=== PATIENT | female | born 1950 | race Caucasian/White ===

== ENCOUNTER → 2016-12-04 | Outpatient (CLI) | payer OTHER ==
[~2016-12-04] VITALS: Ht 152.4 cm; Wt 110.0 kg
[~2016-12-04] MED LIST: AMR2 PO; ASPEC81 PO; ASPI81TA28 PO; CRS10 PO; DAPA1TAB2 PEG; DTRSR10 PO; EXEN1INJ3 SQ; FERR1TAB13 PO; FRRS300 PO; GLC/500 PO; GLC500 PO; GLIM4TAB2 PO; HYDC25 PO; LISI20TA3 PO; LPT/40 PO; METF-384 PO; MULT-506 PO; OXYB15TA PO
[2016-12-04 15:46] VITALS: BP 142/83; PULSE 109; Ht 152.4 cm; Wt 110.0 kg
== END | disposition home or self-care (01) ==
LOC: C.NEUR 15:00
PROVIDERS: ATTEND Internal Medicine Pulmonary Disease
DX: G47.33 Obstructive sleep apnea (adult) (pediatric) (principal); G47.61 Periodic limb movement disorder; E66.01 Morbid (severe) obesity due to excess calories

== ENCOUNTER → 2017-01-28 | Outpatient (CLI) | payer OTHER ==
--- NOTE | 2017-01-28 12:12 | DIAGNOSTIC IMAGING REPORT ---
RIGHT UPPER EXTREMITY ULTRASOUND CLINICAL HISTORY: R22.31 Lump of skin of right upper extremity right upper armULTR6 COMPARISON STUDY: None. FINDINGS: There is a 2.9 x 2.6 x 1.1 cm well-circumscribed mass within the subcutaneous fat in the right upper arm posteriorly. This demonstrates echogenicity consistent with fat. Therefore, this likely represents a lipoma. No fluid collections identified IMPRESSION: A 2.9 x 2.6 x 1.1 cm subcutaneous fat-containing lesion within the right upper arm. This likely represents a lipoma Electronically signed by: Adair Noriega M.D. 01/28/2017 12:11 PM Dictated Date/Time: 01/28/2017 12:10 PM
== END | disposition home or self-care (01) ==
LOC: C.ULTR 11:10
PROVIDERS: ATTEND Internal Medicine
DX: R22.31 Localized swelling, mass and lump, right upper limb (principal)

== ENCOUNTER → 2017-02-25 | Outpatient (CLI) | payer OTHER ==
[~2017-02-25] MED LIST changes: -DAPA1TAB2 PEG; +DAPA1TAB8 PEG
[2017-02-25 12:06] LABS: URINE APPEARANCE CLEAR (CLEAR); URINE BILIRUBIN NEG (NEG); URINE COLOR YELLOW; URINE EPITHELIAL CELL AUTO 20-30 /lpf (0-5); URINE NITRITE NEG (NEG); URINE SPECIFIC GRAVITY 1.007 (1.000-1.030); UROBILINOGEN NEG (NEG); ZZUR CULT IF INDIC CLEAN CATCH NO
[2017-02-25 12:11] LABS: MANUAL MICROSCOPIC REQUIRED? NO; REVIEW REQ? NO
[2017-02-25 12:18] LABS: ALT/SGPT 37 U/L (12-78); AST/SGOT 31 U/L (15-37); BLOOD UREA NITROGEN 16 mg/dl (7-18); BUN/CREATININE RATIO 17.8 (10-20); CALCIUM 9.3 mg/dl (8.5-10.1); CARBON DIOXIDE 28 mmol/L (21-32); CHLORIDE 106 mmol/L (98-107); CHOLESTEROL 114 mg/dl (0-200); CREATININE 0.89 mg/dl (0.60-1.20); GLUCOSE 83 mg/dl (70-99); POTASSIUM 4.1 mmol/L (3.5-5.1); SODIUM 143 mmol/L (136-145); TRIGLYCERIDES 116 mg/dl (0-150); VERY LOW DENSITY LIPOPROT CALC 23 mg/dl
[2017-02-25 12:20] LABS: ESTIMATED AVERAGE GLUCOSE 134 mg/dl; HA1C FLAG Normal (Normal)
[2017-02-25 12:22] LABS: ALB/GLOB RATIO 1.1 (0.9-2); ALKALINE PHOSPHATASE 62 U/L (45-117); CHOLESTEROL/HDL RATIO 2.7; HDL CHOLESTEROL 42 mg/dl; LDL CHOLESTEROL CALCULATED 49 mg/dl
== END | disposition home or self-care (01) ==
LOC: C.LABBFT 07:59
PROVIDERS: ATTEND Physician Assistant Medical
DX: E78.5 Hyperlipidemia, unspecified (principal); E11.9 Type 2 diabetes mellitus without complications

== ENCOUNTER 2017-05-20 14:53 | Inpatient (IN) | payer OTHER ==
[~2017-05-20] VITALS: Ht 154.9 cm; Wt 99.9 kg
[~2017-05-20 14:53] MED LIST changes: -ASPI81TA28 PO; +DAPA1TAB2 PEG; -DAPA1TAB8 PEG; -EXEN1INJ3 SQ; -FERR1TAB13 PO; -GLC/500 PO; -GLIM4TAB2 PO; -LPT/40 PO; -METF-384 PO; -OXYB15TA PO
[2017-05-20] MEDS ORDERED: SODIUM CHLORIDE 0.9% 1000ML 2,000 ML IV STA (16:27)
[2017-05-20] MEDS ORDERED: CEFTRIAXONE SOD INJ 1 GM ADDVIAL IV STA (16:27)
[2017-05-20] MEDS ORDERED: ONDANSETRON INJ 2 MG/ML 2 ML VIAL IV STA (16:27)
[2017-05-20] MEDS ORDERED: IBUPROFEN 600 MG TAB PO STA (16:27)
[2017-05-20] MEDS ORDERED: ASPI81TA28 PO (16:39)
[2017-05-20] MEDS ORDERED: EXEN1INJ3 SQ (16:40)
[2017-05-20] MEDS ORDERED: METF-384 PO (16:43)
[2017-05-20] MEDS ORDERED: GLC/500 PO (16:44)
[2017-05-20] MEDS ORDERED: GLIM4TAB2 PO (16:45)
[2017-05-20] MEDS ORDERED: LPT/40 PO (16:47)
[2017-05-20] MEDS ORDERED: OXYB15TA PO (16:48)
[2017-05-20] MEDS ORDERED: FERR1TAB13 PO (16:49)
[2017-05-20 17:01] LABS: BASO % 0.2 %; BASO ABS # 0.02 K/uL (0-0.2); COMPLETE YES; EOS % 0.2 %; HEMATOCRIT 37.8 % (37-47); IG% 0.3 %; LYMPH % 10.3 %; LYMPH ABS # 1.36 K/uL (1.2-3.4); MEAN CELL VOLUME 81.8 fL (80-100); MEAN CORPUSCULAR HEMOGLOBIN 26.8 pg (25-34); MEAN CORPUSCULAR HGB CONC 32.8 g/dl (32-36); MEAN PLATELET VOLUME 9.7 fL (7.4-10.4); MONO % 9.9 %; NEUT % 79.1 %; PLATELET COUNT 242 K/uL (130-400); RED BLOOD COUNT 4.62 M/uL (4.2-5.4); WHITE BLOOD COUNT 13.18 K/uL (4.8-10.8)
[2017-05-20 17:07] LABS: INR 1.1 (0.9-1.1); PARTIAL THROMBOPLASTIN RATIO 1.1; PROTHROMBIN TIME (PATIENT) 11.4 SECONDS (9.0-12.0)
--- NOTE | 2017-05-20 17:07 | DIAGNOSTIC IMAGING REPORT ---
CHEST ONE VIEW PORTABLE CLINICAL HISTORY: Fever. Sepsis. COMPARISON STUDY: Chest radiograph March 19, 2016. FINDINGS: There is no pneumothorax or pleural effusion. Moderate enlargement of the cardiac silhouette is unchanged. There is no evidence of pulmonary edema. Appearance of the chest is unchanged. Apparent hazy left basilar opacity is unchanged. Chronic deformity of the left humeral neck is noted. IMPRESSION: No acute cardiopulmonary findings. No change in appearance of the chest. Stable cardiomegaly. Electronically signed by: Yazan Hoffman M.D. 05/20/2017 5:06 PM Dictated Date/Time: 05/20/2017 5:04 PM
--- NOTE | 2017-05-20 17:22 | DIAGNOSTIC IMAGING REPORT ---
CT OF THE HEAD WITHOUT CONTRAST CLINICAL HISTORY: Fever. Headache. COMPARISON STUDY: No previous studies for comparison. CT DOSE: 601.98 mGy.cm TECHNIQUE: Helical axial images of the head were obtained without IV contrast. Automated exposure control was utilized for the study. FINDINGS: No acute intracranial hemorrhage, midline shift or mass effect is present. Ventricular system is normal. Basilar cisterns are patent. There are extensive white matter hypodensities. There are no CT findings to suggest acute dural sinus thrombosis or acute territorial infarct. There are no significant calvarial abnormalities. Visualized portions of the sinuses and the mastoid air cells are clear. IMPRESSION: 1. No acute intracranial hemorrhage or mass effect. 2. Extensive white matter hypodensities. These are nonspecific and could reflect small vessel disease although are greater than expected for age. A demyelinating process or other etiology could have this imaging appearance. An MRI of the brain could be obtained for further evaluation. Electronically signed by: Yazan Hoffman M.D. 05/20/2017 5:21 PM Dictated Date/Time: 05/20/2017 5:17 PM
[2017-05-20 17:38] LABS: ALT/SGPT 24 U/L (12-78); BLOOD UREA NITROGEN 19 mg/dl (7-18); CARBON DIOXIDE 25 mmol/L (21-32); CHLORIDE 105 mmol/L (98-107); CREATININE 0.95 mg/dl (0.60-1.20)
[2017-05-20 17:39] LABS: ALKALINE PHOSPHATASE 66 U/L (45-117); AST/SGOT 18 U/L (15-37); BUN/CREATININE RATIO 19.9 (10-20); POTASSIUM 4.2 mmol/L (3.5-5.1); SODIUM 141 mmol/L (136-145)
[2017-05-20 17:44] LABS: GLUCOSE 42 mg/dl (70-99)
--- NOTE | 2017-05-20 19:57 | DIAGNOSTIC IMAGING REPORT ---
CT OF THE ABDOMEN AND PELVIS WITH CONTRAST CLINICAL HISTORY: Left lower quadrant abdominal pain. COMPARISON STUDY: None. TECHNIQUE: Following IV administration of 116 mL of Optiray-320, axial images of the abdomen and pelvis were obtained from the lung bases to the proximal femurs. Images were reviewed in the axial, sagittal, and coronal planes. IV contrast was administered without complication. CT DOSE: 1898.09 mGy.cm FINDINGS: The heart is mildly enlarged. Prominent upper abdominal lymph nodes are likely benign. An index portacaval node measures 1.2 cm in short axis diameter. The liver, spleen, adrenal glands and pancreas are normal. There is no biliary ductal dilatation status post cholecystectomy. Note is made of a 1.4 cm right renal calculus. There are no ureteral calculi. There is no hydronephrosis. There is a possible 4 mm bladder calculus. A few small renal cysts are noted. There is no evidence for a bowel obstruction. The appendix is normal. There is a fat-containing umbilical hernia. No suspicious osseous lesions are identified. There is no fluid collection suggest abscess. IMPRESSION: 1. No acute process within the abdomen or pelvis. 2. 1.4 cm right renal calculus. Possible 4 mm bladder calculus. No ureteral calculi or hydronephrosis. 3. Mildly enlarged upper abdominal lymph nodes which are likely benign but a follow-up CT of the abdomen in 6 months to ensure stability is recommended. Electronically signed by: Yazan Hoffman M.D. 05/20/2017 7:56 PM Dictated Date/Time: 05/20/2017 7:46 PM
[2017-05-20] MEDS ORDERED: MoRPHine SULFATE 4 MG/ML 1 ML CARP\\VIAL IV STA (20:02)
[2017-05-20 20:50] LABS: CSF CHEMISTRY TUBE # 2; CSF TOTAL PROTEIN 67.6 mg/dl (15.0-45.0)
[2017-05-20 21:12] LABS: CSF APPEARANCE CLEAR; CSF COLOR COLORLESS
[2017-05-20 21:13] LABS: CSF XANTHOCHROMIC NO XANTHOCHROMIA
[2017-05-20 21:16] LABS: CSF APPEARANCE CLEAR; CSF COLOR COLORLESS; CSF XANTHOCHROMIC NO XANTHOCHROMIA
[2017-05-20 22:57] LABS: URINE APPEARANCE CLEAR (CLEAR); URINE BILIRUBIN NEG (NEG); URINE COLOR YELLOW; URINE EPITHELIAL CELL AUTO >30 /lpf (0-5); URINE NITRITE NEG (NEG); URINE SPECIFIC GRAVITY > 1.045 (1.000-1.030); UROBILINOGEN NEG (NEG); ZZUR CULT IF INDIC CLEAN CATCH YES
[2017-05-20 22:58] LABS: MANUAL MICROSCOPIC REQUIRED? NO; REVIEW REQ? NO
[2017-05-20] MEDS ORDERED: ONDANSETRON INJ 2 MG/ML 2 ML VIAL ONE (23:35)
--- NOTE | 2017-05-20 23:58 | History and Physical ---
History & Physical Date & Time of Service: May 20, 2017 at 23:58 Chief Complaint: Headache,Dizzy Primary Care Physician: Sky Lugo M.D. History of Present Illness Source: patient 66-year-old female with a past medical history of diabetes, hypertension, coronary artery disease presented to the ER with complaints of headache started about 5 days ago. Patient complains of a generalized illness. Complains of headache on the forehead with no radiation associated with photophobia and phonophobia. The headache is constant, worse when using her CPAP machine. Also complained about nausea but denies any vomiting. Also complained about fevers with chills that started yesterday but denies any neck stiffness. Also complains about feeling dizzy and has blurriness in both her eyes. Denies any sick contacts, recent travels, tick bites. Denies any abdominal pain, diarrhea, urinary symptoms, rashes, cough. Denies any motor weakness, numbness or tingling . Past Medical/Surgical History Medical Problems: (1) Heart disease Status: Chronic Family History Diabetes mellitus Social History Smoking Status: Never Smoker Marital Status: Occupational Status: employed Multi-Drug Resistant Organisms History of MDRO: No Allergies Coded Allergies: Alendronate (Unverified Adverse Reaction, Intermediate, NAUSEA, 08/08/15) Ibandronic Acid (Unverified Adverse Reaction, Unknown, NAUSEA, 08/08/15) Home Medications Scheduled Aspirin (Aspirin Ec), 81 MG PO DAILY Atorvastatin (Lipitor), 40 MG PO DAILY Exenatide (Bydureon), 2 MG SQ WK Ferrous Sulfate (Kp Ferrous Sulfate), 325 MG PO DAILY Glimepiride (Glimepiride), 2 MG PO DAILY Lisinopril (Prinivil), 20 MG PO QAM Metformin Hcl (Glucophage), 1,000 MG PO AMPM Metformin Hcl (Glucophage), 500 MG PO DAILY @ NOON Multivitamin (Multivitamin), 1 TAB PO DAILY Oxybutynin Chloride (Oxybutynin Chloride Er), 15 MG PO DAILY Review of Systems Constitutional: + fever, + chills, No sweats Eyes: + worsening of vision (blurriness) ENT: No hearing loss Respiratory: No cough, No sputum Cardiovascular: No chest pain Abdomen: + nausea, + vomiting, No pain, No diarrhea Musculoskeletal: No joint pain Genitourinary - Female: No dysuria, No urinary frequency, No urinary urgency Neurologic: + problem reported (headache), No memory loss, No numbness/tingling Psychiatric: No depression symptoms Endocrine: No fatigue Hematologic / Lymphatic: No abnormal bleeding/bruising Integumentary: No rash Physical Exam Vital Signs Date Time Temp Pulse Resp B/P (MAP) Pulse Ox O2 Delivery O2 Flow Rate FiO2 05/20/17 21:57 89 18 115/107 93 Room Air 05/20/17 20:15 92 20 135/64 90 Room Air 05/20/17 18:23 93 25 05/20/17 17:53 88 34 05/20/17 17:35 92 20 110/54 94 Room Air 05/20/17 17:32 110/54 05/20/17 17:28 85/55 05/20/17 17:27 81/39 05/20/17 16:53 94 33 05/20/17 16:23 96 28 05/20/17 16:12 92 05/20/17 15:11 38.5 98 18 111/66 91 General Appearance: WD/WN Eyes: normal inspection ENT: hearing grossly normal Neck: supple Respiratory/Chest: chest non-tender, lungs clear, normal breath sounds, no respiratory distress Cardiovascular: regular rate, rhythm Abdomen/GI: normal bowel sounds, soft Extremities/Musculoskelatal: no pedal edema Neurologic/Psych: alert, normal mood/affect, oriented x 3 Skin: normal color Diagnostics Laboratory Results Results Past 24 Hours Test 05/20/17 15:52 05/20/17 16:52 05/20/17 20:15 05/20/17 20:44 Range/Units White Blood Count 13.18 4.8-10.8 K/uL Red Blood Count 4.62 4.2-5.4 M/uL Hemoglobin 12.4 12.0-16.0 g/dL Hematocrit 37.8 37-47 % Mean Corpuscular Volume 81.8 80-100 fL Mean Corpuscular Hemoglobin 26.8 25-34 pg Mean Corpuscular Hemoglobin Concent 32.8 32-36 g/dl Platelet Count 242 130-400 K/uL Mean Platelet Volume 9.7 7.4-10.4 fL Neutrophils (%) (Auto) 79.1 % Lymphocytes (%) (Auto) 10.3 % Monocytes (%) (Auto) 9.9 % Eosinophils (%) (Auto) 0.2 % Basophils (%) (Auto) 0.2 % Neutrophils # (Auto) 10.42 1.4-6.5 K/uL Lymphocytes # (Auto) 1.36 1.2-3.4 K/uL Monocytes # (Auto) 1.31 0.11-0.59 K/uL Eosinophils # (Auto) 0.03 0-0.5 K/uL Basophils # (Auto) 0.02 0-0.2 K/uL RDW Standard Deviation 44.3 36.4-46.3 fL RDW Coefficient of Variation 15.0 11.5-14.5 % Immature Granulocyte % (Auto) 0.3 % Immature Granulocyte # (Auto) 0.04 0.00-0.02 K/uL Prothrombin Time 11.4 9.0-12.0 SECONDS Prothromb Time International Ratio 1.1 0.9-1.1 Activated Partial Thromboplast Time 28.0 21.0-31.0 SECONDS Partial Thromboplastin Ratio 1.1 Sodium Level 141 136-145 mmol/L Potassium Level 4.2 3.5-5.1 mmol/L Chloride Level 105 98-107 mmol/L Carbon Dioxide Level 25 21-32 mmol/L Anion Gap 11.0 3-11 mmol/L Blood Urea Nitrogen 19 7-18 mg/dl Creatinine 0.95 0.60-1.20 mg/dl Estimated GFR () 71.8 Estimated GFR (Non- 62.0 BUN/Creatinine Ratio 19.9 10-20 Random Glucose 42 70-99 mg/dl Calcium Level 9.0 8.5-10.1 mg/dl Total Bilirubin 0.5 0.2-1 mg/dl Direct Bilirubin 0.1 0-0.2 mg/dl Aspartate Amino Transf (AST/SGOT) 18 15-37 U/L Alanine Aminotransferase (ALT/SGPT) 24 12-78 U/L Alkaline Phosphatase 66 45-117 U/L Total Creatine Kinase 94 26-192 U/L Creatine Kinase MB < 0.5 0.5-3.6 ng/ml Creatine Kinase MB Ratio 0-3.0 Troponin I < 0.015 0-0.045 ng/ml Total Protein 7.1 6.4-8.2 gm/dl Albumin 3.3 3.4-5.0 gm/dl Lipase 202 73-393 U/L Lactic Acid Level 1.3 0.4-2.0 mmol/L CSF Color COLORLESS CSF Appearance CLEAR CSF WBC 22 0-5 /uL CSF RBC 11 0 /uL CSF Xanthrochromic NO XANTHOCHROMIA CSF Cell Count Tube # 4 CSF Mononuclear WBCs % 51.0 % CSF Polynuclear WBCs (%) 49.0 % CSF Chemistry Tube # 2 CSF Glucose 22 40-70 mg/dl CSF Total Protein 67.6 15.0-45.0 mg/dl Lyme Disease IgM Antibody NEG NEG Test 05/20/17 22:30 05/20/17 23:32 Range/Units Urine Color YELLOW Urine Appearance CLEAR CLEAR Urine pH 5.0 4.5-7.5 Urine Specific [place] > 1.045 1.000-1.030 Urine Protein NEG NEG Urine Glucose (UA) NEG NEG Urine Ketones NEG NEG Urine Occult Blood NEG NEG Urine Nitrite NEG NEG Urine Bilirubin NEG NEG Urine Urobilinogen NEG NEG Urine Leukocyte Esterase SMALL NEG Urine WBC (Auto) 10-30 0-5 /hpf Urine RBC (Auto) 5-10 0-4 /hpf Urine Hyaline Casts (Auto) 1-5 0-5 /lpf Urine Epithelial Cells (Auto) >30 0-5 /lpf Urine Bacteria (Auto) NEG NEG Bedside Glucose 46 70-90 mg/dl Microbiology Results 05/20/17 Blood Culture, Received Pending 05/20/17 Blood Culture, Received Pending 05/20/17 Gram Stain - Final, Resulted 05/20/17 CSF Culture, Resulted Pending 05/20/17 Urine Culture, Received Pending Diagnostic Radiology CT OF THE HEAD WITHOUT CONTRAST CLINICAL HISTORY: Fever. Headache. COMPARISON STUDY: No previous studies for comparison. CT DOSE: 601.98 mGy.cm TECHNIQUE: Helical axial images of the head were obtained without IV contrast. Automated exposure control was utilized for the study. FINDINGS: No acute intracranial hemorrhage, midline shift or mass effect is present. Ventricular system is normal. Basilar cisterns are patent. There are extensive white matter hypodensities. There are no CT findings to suggest acute dural sinus thrombosis or acute territorial infarct. There are no significant calvarial abnormalities. Visualized portions of the sinuses and the mastoid air cells are clear. IMPRESSION: 1. No acute intracranial hemorrhage or mass effect. 2. Extensive white matter hypodensities. These are nonspecific and could reflect small vessel disease although are greater than expected for age. A demyelinating process or other etiology could have this imaging appearance. An MRI of the brain could be obtained for further evaluation. Electronically signed by: Yazan Hoffman M.D. 05/20/2017 5:21 PM Dictated Date/Time: 05/20/2017 5:17 PM CHEST ONE VIEW PORTABLE CLINICAL HISTORY: Fever. Sepsis. COMPARISON STUDY: Chest radiograph March 19, 2016. FINDINGS: There is no pneumothorax or pleural effusion. Moderate enlargement of the cardiac silhouette is unchanged. There is no evidence of pulmonary edema. Appearance of the chest is unchanged. Apparent hazy left basilar opacity is unchanged. Chronic deformity of the left humeral neck is noted. IMPRESSION: No acute cardiopulmonary findings. No change in appearance of the chest. Stable cardiomegaly. Electronically signed by: Yazan Hoffman M.D. 05/20/2017 5:06 PM [~ rep ct add3]] CT OF THE ABDOMEN AND PELVIS WITH CONTRAST CLINICAL HISTORY: Left lower quadrant abdominal pain. COMPARISON STUDY: None. TECHNIQUE: Following IV administration of 116 mL of Optiray-320, axial images of the abdomen and pelvis were obtained from the lung bases to the proximal femurs. Images were reviewed in the axial, sagittal, and coronal planes. IV contrast was administered without complication. CT DOSE: 1898.09 mGy.cm FINDINGS: The heart is mildly enlarged. Prominent upper abdominal lymph nodes are likely benign. An index portacaval node measures 1.2 cm in short axis diameter. The liver, spleen, adrenal glands and pancreas are normal. There is no biliary ductal dilatation status post cholecystectomy. Note is made of a 1.4 cm right renal calculus. There are no ureteral calculi. There is no hydronephrosis. There is a possible 4 mm bladder calculus. A few small renal cysts are noted. There is no evidence for a bowel obstruction. The appendix is normal. There is a fat-containing umbilical hernia. No suspicious osseous lesions are identified. There is no fluid collection suggest abscess. IMPRESSION: 1. No acute process within the abdomen or pelvis. 2. 1.4 cm right renal calculus. Possible 4 mm bladder calculus. No ureteral calculi or hydronephrosis. 3. Mildly enlarged upper abdominal lymph nodes which are likely benign but a follow-up CT of the abdomen in 6 months to ensure stability is recommended. Electronically signed by: Yazan Hoffman M.D. 05/20/2017 7:56 PM EKG Normal sinus rhythm Left axis deviation Left bundle branch block Abnormal ECG When compared with ECG of 08-AUG-1999 09:12, No significant change was found Confirmed by SOFIA GÓMEZ ([id number]) on 05/20/2017 6:35:04 PM Impression Assessment and Plan 66-year-old female with a past medical history of diabetes, hypertension, coronary artery disease presented to the ER with complaints of headache started about 5 days ago. Complains of feeling ill and developed fever with chills yesterday. Has photophobia/phonophobia but no neck stiffness. Meningitis: Viral vs early bacterial - Head CT:. No acute intracranial hemorrhage or mass effect Extensive white matter hypodensities. These are nonspecific and could reflect small vessel disease although are greater than expected for age. A demyelinating process or other etiology could have this imaging appearance - MRI ordered - CSF positive for elevated WBC 73, low glucose 22( her blood sugar is 43 - about 50 % lower in CSF ) and and in the high total CSF protein - G stain no organisms, CSF cultures pending - BC, UC pending - Lyme negative - Vancomycin and Rocephin Hypoglycemia: h/o DM uses metformin and exenatide ,glimepiride- held for now - Initial BSG 43-->61 - hypoglycemia protocol - ISS for managing hyperglycemia Right renal calculus: Stable Abdominal/pelvis CT : 0.4 cm right renal calculus. Possible 4 mm bladder calculus. No ureteral calculi or hydronephrosis. Upper abdominal lymphadenopathy: Incidental finding on CT abdomen and pelvis : Mildly enlarged upper abdominal lymph nodes which are likely benign but a follow-up CT of the abdomen in 6 months to ensure stability is recommended. HTN: - continue lisinopril Coronary artery disease: - Continue aspirin, Lipitor Full code dispo: admitted to tele Resident Physician Supervision Note: I was present with Dr. Kang during the history and exam. I discussed the case with the resident and agree with the findings and plan as documented in the note. Any exceptions or clarifications are listed here: 66 y/o F Hx DM, HTN with 5 days headache followed by fever x 1 day. LP performed in ER. CSF consistent with meningitis - likely agustina however results are borderline OE AAO x 3 S1,2 R CTAB NT, ND No CCE P: Pending culture results we will cover for bacterial meningitis with Cef, Vanc - IVF, pain control Sliding scale Cont prescribed meds Documented By: Landon Christina Level of Care Telemetry Resuscitation Status FULL RESUSCITATION VTE Prophylaxis Risk Level: Moderate Given or contraindicated: Unfractionated heparin SQ Resident Tracking Resident Involvement: Resident Care Provided Care Provided: Adult Hospital Medicine
[2017-05-21] VITALS (7 sets, daily range): BP systolic 114–149; BP diastolic 65–81; PULSE 68–95; TEMP 36.5–37.2; O2SAT 92–98; BMI 43.4
[2017-05-21] MEDS ORDERED: NURSING VERBAL MED ORDER ONE
[2017-05-21] MEDS ORDERED: ACETAMINOPHEN 325 MG TAB PO PRN
[2017-05-21] MEDS ORDERED: POLYETHYLENE (MIRALAX) 17 GM PACK PO PRN
--- NOTE | 2017-05-21 00:23 | EMERGENCY ROOM VISIT NOTE ---
History Report prepared by Domi: Jennifer Nguyen Under the Supervision of: Dr. Ruperto Walton D.O. First contact with patient: 16:19 Chief Complaint: ILLNESS Stated Complaint: HEADACHE,DIZZY History of Present Illness The patient is a 66 year old female who presents to the Emergency Room with complaints of a constant illness beginning 5 days ago. The patient states that she has been feeling sick over the last few days and has been having severe constant headaches in the front of her head. She notes that she has also has been having difficulty thinking and remembering things. She complains of dizziness, nausea, and decreased appetite. The patient denies any cough, shortness of breath, urinary symptoms, back pain, flank pain, abdominal pain, vomiting, rash, runny nose, congestion. She notes that she took Tylenol 10 hours ago. Source of History: patient Onset: 5 days ago Position: other (global) Quality: other (illness) Timing: constant Associated Symptoms: + fevers, + headache, + nausea, No cough, No SOB, No vomiting, No abdominal pain, No back pain, No urinary symptoms, No rash Note: She complains of inability to think or remember correctly, dizziness and decreased appetite. The patient denies any back pain, flank pain, runny nose, and congestion. Review of Systems See HPI for pertinent positives & negatives. A total of 10 systems reviewed and were otherwise negative. Past Medical & Surgical Medical Problems: (1) Heart disease (2) Meningitis Family History Relation not specified for: Diabetes mellitus Social History Smoking Status: Never Smoker Alcohol Use: none Marital Status: Occupation Status: employed Current/Historical Medications Scheduled Aspirin (Aspirin Ec), 81 MG PO DAILY Atorvastatin (Lipitor), 40 MG PO DAILY Exenatide (Bydureon), 2 MG SQ WK Ferrous Sulfate (Kp Ferrous Sulfate), 325 MG PO DAILY Glimepiride (Glimepiride), 2 MG PO DAILY Lisinopril (Prinivil), 20 MG PO QAM Metformin Hcl (Glucophage), 1,000 MG PO AMPM Metformin Hcl (Glucophage), 500 MG PO DAILY @ NOON Multivitamin (Multivitamin), 1 TAB PO DAILY Oxybutynin Chloride (Oxybutynin Chloride Er), 15 MG PO DAILY Allergies Coded Allergies: Alendronate (Unverified Adverse Reaction, Intermediate, NAUSEA, 08/08/15) Ibandronic Acid (Unverified Adverse Reaction, Unknown, NAUSEA, 08/08/15) Physical Exam Vital Signs Date Time Temp Pulse Resp B/P (MAP) Pulse Ox O2 Delivery O2 Flow Rate FiO2 05/21/17 00:11 98 Nasal Cannula 2.0 05/21/17 00:07 85 Room Air 05/20/17 21:57 89 18 115/107 93 Room Air 05/20/17 20:15 92 20 135/64 90 Room Air 05/20/17 18:23 93 25 05/20/17 17:53 88 34 05/20/17 17:35 92 20 110/54 94 Room Air 05/20/17 17:32 110/54 05/20/17 17:28 85/55 05/20/17 17:27 81/39 05/20/17 16:53 94 33 05/20/17 16:23 96 28 05/20/17 16:12 92 05/20/17 15:11 38.5 98 18 111/66 91 Physical Exam CONSTITUTIONAL/VITAL SIGNS: Reviewed / noted above. GENERAL: Non-toxic in appearance. INTEGUMENTARY: Warm, dry, and [place]. HEAD: Normocephalic. EYES: without scleral icterus or trauma. ENT/OROPHARYNX: mucous membranes are slightly dry. LYMPHADENOPATHY/NECK: Is supple without lymphadenopathy or meningismus. RESPIRATORY: Lungs clear and equal. CARDIOVASCULAR: Regular rate and rhythm. GI/ABDOMEN: Soft . No organomegaly or pulsatile mass. No rebound or guarding. Normal bowel sounds. Tenderness in left mid abdominal region. EXTREMITIES: Warm and well perfused. BACK: No CVA tenderness. NEUROLOGICAL: Intact without focal deficits. PSYCHIATRIC: normal affect. MUSCULOSKELETAL: Normally developed with good muscle tone. Medical Decision & Procedures ER Provider Diagnostic Interpretation: Radiology results as stated below per my review and radiologist interpretation: CT OF THE HEAD WITHOUT CONTRAST FINDINGS: No acute intracranial hemorrhage, midline shift or mass effect is present. Ventricular system is normal. Basilar cisterns are patent. There are extensive white matter hypodensities. There are no CT findings to suggest acute dural sinus thrombosis or acute territorial infarct. There are no significant calvarial abnormalities. Visualized portions of the sinuses and the mastoid air cells are clear. IMPRESSION: 1. No acute intracranial hemorrhage or mass effect. 2. Extensive white matter hypodensities. These are nonspecific and could reflect small vessel disease although are greater than expected for age. A demyelinating process or other etiology could have this imaging appearance. An MRI of the brain could be obtained for further evaluation. Electronically signed by: Yazan Hoffman M.D. 05/20/2017 5:21 PM Dictated Date/Time: 05/20/2017 5:17 PM CHEST ONE VIEW PORTABLE FINDINGS: There is no pneumothorax or pleural effusion. Moderate enlargement of the cardiac silhouette is unchanged. There is no evidence of pulmonary edema. Appearance of the chest is unchanged. Apparent hazy left basilar opacity is unchanged. Chronic deformity of the left humeral neck is noted. IMPRESSION: No acute cardiopulmonary findings. No change in appearance of the chest. Stable cardiomegaly. Electronically signed by: Yazan Hoffman M.D. 05/20/2017 5:06 PM Dictated Date/Time: 05/20/2017 5:[address] OF THE ABDOMEN AND PELVIS WITH CONTRAST FINDINGS: The heart is mildly enlarged. Prominent upper abdominal lymph nodes are likely benign. An index portacaval node measures 1.2 cm in short axis diameter. The liver, spleen, adrenal glands and pancreas are normal. There is no biliary ductal dilatation status post cholecystectomy. Note is made of a 1.4 cm right renal calculus. There are no ureteral calculi. There is no hydronephrosis. There is a possible 4 mm bladder calculus. A few small renal cysts are noted. There is no evidence for a bowel obstruction. The appendix is normal. There is a fat-containing umbilical hernia. No suspicious osseous lesions are identified. There is no fluid collection suggest abscess. IMPRESSION: 1. No acute process within the abdomen or pelvis. 2. 1.4 cm right renal calculus. Possible 4 mm bladder calculus. No ureteral calculi or hydronephrosis. 3. Mildly enlarged upper abdominal lymph nodes which are likely benign but a follow-up CT of the abdomen in 6 months to ensure stability is recommended. Electronically signed by: Yazan Hoffman M.D. 05/20/2017 7:56 PM Dictated Date/Time: 05/20/2017 7:46 PM MRI HEAD: No evidence of acute infarct. Periventricular and scattered T2/FLAIR white matter hyperintensities, nonspecific but most likely related to moderate to severe chronic small vessel ischemic changes. No evidence of abnormal enhancement. Postcontrast images are limited by motion artifact. Visualized paranasal sinuses and mastoid air cells are clear. Orbits are unremarkable. Laboratory Results 05/20/17 15:52 Red Blood Count 4.62, Mean Corpuscular Volume 81.8, Mean Corpuscular Hemoglobin 26.8, Mean Corpuscular Hemoglobin Concent 32.8, Mean Platelet Volume 9.7, Neutrophils (%) (Auto) 79.1, Lymphocytes (%) (Auto) 10.3, Monocytes (%) (Auto) 9.9, Eosinophils (%) (Auto) 0.2, Basophils (%) (Auto) 0.2, Neutrophils # (Auto) 10.42, Lymphocytes # (Auto) 1.36, Monocytes # (Auto) 1.31, Eosinophils # (Auto) 0.03, Basophils # (Auto) 0.02 05/20/17 15:52 Test 05/20/17 15:52 05/20/17 16:52 05/20/17 20:15 05/20/17 20:44 White Blood Count 13.18 K/uL (4.8-10.8) Red Blood Count 4.62 M/uL (4.2-5.4) Hemoglobin 12.4 g/dL (12.0-16.0) Hematocrit 37.8 % (37-47) Mean Corpuscular Volume 81.8 fL (80-100) Mean Corpuscular Hemoglobin 26.8 pg (25-34) Mean Corpuscular Hemoglobin Concent 32.8 g/dl (32-36) Platelet Count 242 K/uL (130-400) Mean Platelet Volume 9.7 fL (7.4-10.4) Neutrophils (%) (Auto) 79.1 % Lymphocytes (%) (Auto) 10.3 % Monocytes (%) (Auto) 9.9 % Eosinophils (%) (Auto) 0.2 % Basophils (%) (Auto) 0.2 % Neutrophils # (Auto) 10.42 K/uL (1.4-6.5) Lymphocytes # (Auto) 1.36 K/uL (1.2-3.4) Monocytes # (Auto) 1.31 K/uL (0.11-0.59) Eosinophils # (Auto) 0.03 K/uL (0-0.5) Basophils # (Auto) 0.02 K/uL (0-0.2) RDW Standard Deviation 44.3 fL (36.4-46.3) RDW Coefficient of Variation 15.0 % (11.5-14.5) Immature Granulocyte % (Auto) 0.3 % Immature Granulocyte # (Auto) 0.04 K/uL (0.00-0.02) Prothrombin Time 11.4 SECONDS (9.0-12.0) Prothromb Time International Ratio 1.1 (0.9-1.1) Activated Partial Thromboplast Time 28.0 SECONDS (21.0-31.0) Partial Thromboplastin Ratio 1.1 Anion Gap 11.0 mmol/L (3-11) Estimated GFR () 71.8 Estimated GFR (Non- 62.0 BUN/Creatinine Ratio 19.9 (10-20) Calcium Level 9.0 mg/dl (8.5-10.1) Total Bilirubin 0.5 mg/dl (0.2-1) Direct Bilirubin 0.1 mg/dl (0-0.2) Aspartate Amino Transf (AST/SGOT) 18 U/L (15-37) Alanine Aminotransferase (ALT/SGPT) 24 U/L (12-78) Alkaline Phosphatase 66 U/L (45-117) Total Creatine Kinase 94 U/L (26-192) Creatine Kinase MB < 0.5 ng/ml (0.5-3.6) Creatine Kinase MB Ratio (0-3.0) Troponin I < 0.015 ng/ml (0-0.045) Total Protein 7.1 gm/dl (6.4-8.2) Albumin 3.3 gm/dl (3.4-5.0) Lipase 202 U/L (73-393) Lactic Acid Level 1.3 mmol/L (0.4-2.0) CSF Color COLORLESS CSF Appearance CLEAR CSF WBC 45 /uL (0-5) CSF RBC 600 /uL (0) CSF Xanthrochromic NO XANTHOCHROMIA CSF Cell Count Tube # 1 CSF Mononuclear WBCs % 51.0 % CSF Polynuclear WBCs (%) 49.0 % CSF Chemistry Tube # 2 CSF Glucose 22 mg/dl (40-70) CSF Total Protein 67.6 mg/dl (15.0-45.0) Lyme Disease IgM Antibody NEG (NEG) Test 05/20/17 22:30 05/20/17 23:32 Urine Color YELLOW Urine Appearance CLEAR (CLEAR) Urine pH 5.0 (4.5-7.5) Urine Specific [place] > 1.045 (1.000-1.030) Urine Protein NEG (NEG) Urine Glucose (UA) NEG (NEG) Urine Ketones NEG (NEG) Urine Occult Blood NEG (NEG) Urine Nitrite NEG (NEG) Urine Bilirubin NEG (NEG) Urine Urobilinogen NEG (NEG) Urine Leukocyte Esterase SMALL (NEG) Urine WBC (Auto) 10-30 /hpf (0-5) Urine RBC (Auto) 5-10 /hpf (0-4) Urine Hyaline Casts (Auto) 1-5 /lpf (0-5) Urine Epithelial Cells (Auto) >30 /lpf (0-5) Urine Bacteria (Auto) NEG (NEG) Bedside Glucose 46 mg/dl (70-90) Laboratory results as stated above per my review. Medications Administered Medications (Trade) Dose Ordered Sig/Autumn Route Start Time Stop Time Status Last Admin Dose Admin Sodium Chloride 2,000 ml @ 999 mls/hr Q2H1M STAT IV 05/20/17 16:27 05/20/17 18:27 DC 05/20/17 17:31 999 MLS/HR Ceftriaxone Sodium (Rocephin Inj) 1 gm NOW STAT IV 05/20/17 16:27 05/20/17 16:31 DC 05/20/17 17:27 1 GM Ibuprofen (Motrin Tab) 600 mg NOW STAT PO 05/20/17 16:27 05/20/17 16:31 DC 05/20/17 17:27 600 MG Ondansetron HCl (Zofran Inj) 4 mg NOW STAT IV 05/20/17 16:27 05/20/17 16:31 DC 05/20/17 17:26 4 MG Morphine Sulfate (MoRPHine SULFATE INJ) 4 mg NOW STAT IV 05/20/17 20:02 05/20/17 20:03 DC 05/20/17 20:35 4 MG Ondansetron HCl (Zofran Inj) 4 mg STK-MED ONCE .ROUTE 05/20/17 23:35 05/20/17 23:36 DC 05/20/17 23:38 4 MG Procedure Lumbar Puncture Indication: fever and headache. Verbal consent was obtained after the risks and benefits were explained, including but not limited to headache, bleeding/clotting, scarring, infection, pain, and bone/joint/nerve damage. At this time, the risks of the procedure are less than the risks of NOT performing the procedure. A time out was taken and the correct patient and site identified. The patient was placed in the seated position and the back was prepped with betadine and draped in the standard fashion. The L3 intervertebral space was identified, anesthetized locally with 1 % lidocaine without epinephrine, and the spinal needle was inserted through the skin with the bevel parallel to the dural fibers. The needle was carefully advanced into the lumbar cistern and 4 tubes of clear CSF was obtained. The stylet was replaced and the needle was removed. A bandaid was placed and the patient was placed in the supine position. The patient tolerated the procedure well and there were no complications. ECG Indication: weakness Rate (beats per minute): 96 Rhythm: normal sinus Findings: LBBB, no ectopy, other (no acute injury) ED Course 1619: Previous medical records were reviewed. The patient was evaluated in room B3. A complete history and physical examination was performed. 1627: Zofran Inj 4mg IV, Motrin Tab 600mg PO, Rocephin Inj 1gm IV, Sodium Chloride 2000 ml @ 999 mls/hr IV. 2002: Morphine Sulfate 4mg IV. 2242: Discussed the patient's case. The patient will be evaluated for further treatment and disposition. 2257: On reevaluation, the patient is doing well. I discussed the results and findings with the patient. She verbalized agreement of the treatment plan. I spoke with Dr. Christina of the [facility] Hospitalist Service. The patient will be evaluated for further management and care. Medical Decision Differential includes viral illness, influenza, streptococcal pharyngitis, meningitis, pneumonia, sinusitis, UTI, pyelonephritis, otitis media. Medication Reconciliation: I attest that I have personally reviewed the patient' s current medication list. Blood pressure Screening: Patient was found to have normal blood pressure on screening and does not require follow-up. This is a 66-year-old female who presents to the ED with a chief complaint of headache, fever and dizziness for the past 5 days. She states that her headache is worse when using her CPAP. She also states that she has trouble remembering things. She reports sudden onset of her symptoms 5 days ago. She denies having a headache at this moment. She does report some nausea. She has a history of diabetes. Her exam reveals a temperature of 38.5. Saturations of 91%. She is tender in the left side of her abdomen on exam. She denies any discomfort without palpation there. Her mucous membranes are slightly dry. Her exam was otherwise unremarkable. She denied any other specific complaint. CT scan of the head revealed some abnormal findings suggesting either small vessel disease or demyelination, MRI was recommended. MRI reveals findings suggesting small vessel disease. CT scan of the abdomen and pelvis revealed some mildly enlarged upper lymph nodes. Six-month follow-up repeat CT scan was recommended. CBC reveals a white count of 13.1. EKG shows normal sinus rhythm. BUN is 19, glucose was 42, troponin is negative. Chest x-ray was negative for acute disease. The patient was treated with IV fluids. She was given some by mouth fluids for her hypoglycemia. IV Rocephin and IV Zofran. She was also given IV vancomycin as well as IV acyclovir. Lumbar puncture revealed 18 white cells. Urine did not show infection. Lyme was negative. The patient will be seen by the hospitalist for further inpatient evaluation and care. Consults Time Called: [id number] Consulting Physician: Dr. Carri Jones [facility] Returned Call: [phone] Discussed the patient's case. The patient will be evaluated for further treatment and disposition. Impression Primary Impression: Meningitis Scribe Attestation The scribe's documentation has been prepared under my direction and personally reviewed by me in its entirety. I confirm that the note above accurately reflects all work, treatment, procedures, and medical decision making performed by me. Departure Information Dispostion Being Evaluated By Hospitalist Referrals Sky Lugo M.D. (PCP) Patient Instructions My [facility]
[2017-05-21] MEDS ORDERED: DEXTROSE 50% 50 ML SYR ONE (01:41)
[2017-05-21] MEDS: ONDANSETRON INJ 2 MG/ML 2 ML VIAL IV PRN (01:41)
[2017-05-21] MEDS: SODIUM CHLORIDE 0.9% 1000ML 1,000 ML IV SCH ×3 (01:42→21:06)
[2017-05-21] MEDS ORDERED: VANCOMYCIN INJ 2,600 MG in SODIUM CHLORIDE 0.9% 500ML 500 ML IV ONE (01:45)
[2017-05-21] MEDS ORDERED: VANCOMYCIN CONSULT ACTIVE PRN (02:45)
[2017-05-21] MEDS: CEFTRIAXONE SOD INJ 2,000 MG in DEXTROSE 5% 50ML 50 ML IV SCH ×2 (04:47→15:48)
[2017-05-21] MEDS: HEPARIN SOD 5000 UNIT/0.5 ML CARP SQ SCH ×3 (06:20→21:54)
[2017-05-21 06:46] LABS: BASO % 0.2 %; BASO ABS # 0.02 K/uL (0-0.2); COMPLETE YES; HEMATOCRIT 33.7 % (37-47); IG% 0.3 %; LYMPH % 10.8 %; LYMPH ABS # 1.05 K/uL (1.2-3.4); MEAN CELL VOLUME 81.8 fL (80-100); MEAN CORPUSCULAR HEMOGLOBIN 26.5 pg (25-34); MEAN CORPUSCULAR HGB CONC 32.3 g/dl (32-36); MEAN PLATELET VOLUME 9.2 fL (7.4-10.4); MONO % 7.3 %; NEUT % 80.4 %; PLATELET COUNT 192 K/uL (130-400); RED BLOOD COUNT 4.12 M/uL (4.2-5.4)
[2017-05-21] MEDS: INSULIN ASPART 100 UNITS/ML 3 ML PEN SC SCH ×4 (07:00→21:00)
[2017-05-21 07:19] LABS: BUN/CREATININE RATIO 16.5 (10-20); CALCIUM 8.1 mg/dl (8.5-10.1); CREATININE 0.8 mg/dl (0.60-1.20); POTASSIUM 3.9 mmol/L (3.5-5.1)
[2017-05-21 07:20] LABS: ALB/GLOB RATIO 0.8 (0.9-2)
[2017-05-21] MEDS: MULTIVITAMIN TAB PO SCH (07:45)
[2017-05-21] MEDS: ATORVASTATIN 40 MG TAB PO SCH (07:45)
[2017-05-21] MEDS: OXYBUTYNIN CHLORIDE 5 MG TABCR PO SCH (07:45)
[2017-05-21] MEDS: ASPIRIN 81 MG ECTAB PO SCH (07:45)
[2017-05-21] MEDS: LISINOPRIL 20 MG TAB PO SCH (07:45)
[2017-05-21] MEDS: FERROUS SULFATE 325 MG TAB PO SCH (07:46)
--- NOTE | 2017-05-21 08:14 | Family Medicine Progress Note ---
Progress Note Date of Service May 21, 2017. Subjective Pt evaluation today including: conversation w/ patient, physical exam, chart review, lab review, review of studies, conversation w/ senior professional services consultant, review of inpatient medication list Pain: Rated 8-9/10; frontal headache PO Intake: Fully capable of PO intake of liquids/solids Voiding: no voiding problems, no incontinence Twyla does not feel well this morning and is struggling with extreme headache pain and some nausea Tylenol given this morning has not helped alleviate pain. She also complains of feeling "quite warm" Constitutional: + fever, + chills, + fatigue Eyes: + worsening of vision Respiratory: No problem reported Cardiovascular: + problem reported (Reports she has high blood pressure) Abdomen: + nausea, No vomiting Neurologic: + weakness Skin: No rash Medications Current Inpatient Medications Medications (Trade) Dose Ordered Sig/Autumn Route Start Time Stop Time Status Last Admin Dose Admin Heparin Sodium (Porcine) (Heparin Sq 5000 Unit/0.5ml) 5,000 unit Q8 SQ 05/21/17 06:00 06/20/17 05:59 05/21/17 06:20 5,000 UNIT Sodium Chloride 1,000 ml @ 100 mls/hr Q10H IV 05/21/17 01:30 06/20/17 01:29 05/21/17 01:42 100 MLS/HR Acetaminophen (Tylenol Tab) 650 mg Q4H PRN PO 05/21/17 00:00 06/20/17 00:00 Ondansetron HCl (Zofran Inj) 4 mg Q6H PRN IV 05/21/17 00:00 06/20/17 00:00 05/21/17 01:41 4 MG Polyethylene (Miralax Powder Packet) 17 gm DAILY PRN PO 05/21/17 00:00 06/20/17 00:00 Aspirin (Ecotrin Tab) 81 mg DAILY PO 05/21/17 09:00 06/20/17 08:59 05/21/17 07:45 81 MG Atorvastatin Calcium (Lipitor Tab) 40 mg DAILY PO 05/21/17 09:00 06/20/17 08:59 05/21/17 07:45 40 MG Lisinopril (Zestril Tab) 20 mg QAM PO 05/21/17 09:00 06/20/17 08:59 05/21/17 07:45 20 MG Multivitamins (Multivitamin Tab) 1 tab DAILY PO 05/21/17 09:00 06/20/17 08:59 05/21/17 07:45 1 TAB Ferrous Sulfate (Feosol Tab) 325 mg DAILY PO 05/21/17 09:00 06/20/17 08:59 05/21/17 07:46 325 MG Oxybutynin Chloride (Ditropan-Xl Tab) 15 mg DAILY PO 05/21/17 09:00 06/20/17 08:59 05/21/17 07:45 15 MG Insulin Aspart (novoLOG ASPART) SLIDING SCALE G... ACHS SC 05/21/17 07:00 06/20/17 06:59 Ceftriaxone Sodium 2000 mg/ Dextrose 70 ml @ 100 mls/hr Q12H IV 05/21/17 04:00 05/31/17 03:59 05/21/17 04:47 100 MLS/HR Vancomycin HCl (Consult) 1 ea UD PRN N/A 05/21/17 02:45 06/20/17 02:44 Objective Vital Signs Date Time Temp Pulse Resp B/P (MAP) Pulse Ox O2 Delivery O2 Flow Rate FiO2 05/21/17 07:47 36.9 77 18 114/65 (81) 93 Room Air 05/21/17 04:06 Nasal Cannula 2.0 05/21/17 04:00 37.1 73 18 122/71 (88) 98 Nasal Cannula 2.0 05/21/17 00:50 37.0 77 22 132/79 97 Nasal Cannula 2.0 05/21/17 00:31 84/61 05/21/17 00:29 76 24 05/21/17 00:26 73 05/21/17 00:24 36.8 105/51 98 05/21/17 00:22 73 05/21/17 00:13 19 05/21/17 00:11 98 Nasal Cannula 2.0 05/21/17 00:07 85 Room Air 05/21/17 00:01 98/50 05/20/17 23:58 80 18 94 05/20/17 23:43 85 13 96 05/20/17 23:31 122/66 05/20/17 21:57 115/107 05/20/17 21:57 89 18 115/107 93 Room Air 05/20/17 21:43 97 21 05/20/17 21:28 86 20 89 05/20/17 21:13 83 27 96 05/20/17 20:58 86 34 90 05/20/17 20:43 86 32 05/20/17 20:28 87 37 88 05/20/17 20:18 135/64 05/20/17 20:15 92 20 135/64 90 Room Air 05/20/17 19:28 95 26 05/20/17 19:13 89 0 05/20/17 18:58 85 18 05/20/17 18:43 99 32 05/20/17 18:28 97 22 05/20/17 18:23 93 25 05/20/17 17:53 88 34 05/20/17 17:35 92 20 110/54 94 Room Air 05/20/17 17:32 110/54 05/20/17 17:28 85/55 05/20/17 17:27 81/39 05/20/17 16:53 94 33 05/20/17 16:23 96 28 05/20/17 16:12 92 05/20/17 15:11 38.5 98 18 111/66 91 Physical Exam General Appearance: + mild distress (clearly in pain) Eyes: + abnormal EOM (Difficult for patient to focus eyes during neuro check "following" maneuver) ENT: hearing grossly normal Neck: + pertinent finding (Nuchal rigidity) Respiratory/Chest: chest non-tender, lungs clear, normal breath sounds, no respiratory distress, no accessory muscle use Cardiovascular: regular rate, rhythm Abdomen: normal bowel sounds, non tender, soft Extremities: non-tender, normal inspection, no pedal edema, no calf tenderness Neurologic/Psychiatric: no motor/sensory deficits, alert, oriented x 3, + abnormal senior program manager II-XII (CNII; slow to follow fingers with eyes) Skin: normal color, no rash Laboratory Results 05/21/17 06:14 Red Blood Count 4.12, Mean Corpuscular Volume 81.8, Mean Corpuscular Hemoglobin 26.5, Mean Corpuscular Hemoglobin Concent 32.3, Mean Platelet Volume 9.2, Neutrophils (%) (Auto) 80.4, Lymphocytes (%) (Auto) 10.8, Monocytes (%) (Auto) 7.3, Eosinophils (%) (Auto) 1.0, Basophils (%) (Auto) 0.2, Neutrophils # (Auto) 7.79, Lymphocytes # (Auto) 1.05, Monocytes # (Auto) 0.71, Eosinophils # (Auto) 0.10, Basophils # (Auto) 0.02 05/21/17 06:14 Test 05/20/17 15:52 05/20/17 16:52 05/20/17 20:15 05/20/17 22:30 Prothrombin Time 11.4 SECONDS (9.0-12.0) Prothromb Time International Ratio 1.1 (0.9-1.1) Activated Partial Thromboplast Time 28.0 SECONDS (21.0-31.0) Partial Thromboplastin Ratio 1.1 Direct Bilirubin 0.1 mg/dl (0-0.2) Total Creatine Kinase 94 U/L (26-192) Creatine Kinase MB < 0.5 ng/ml (0.5-3.6) Creatine Kinase MB Ratio (0-3.0) Troponin I < 0.015 ng/ml (0-0.045) Lipase 202 U/L (73-393) Lactic Acid Level 1.3 mmol/L (0.4-2.0) CSF Color COLORLESS CSF Appearance CLEAR CSF WBC 45 /uL (0-5) CSF RBC 600 /uL (0) CSF Xanthrochromic NO XANTHOCHROMIA CSF Cell Count Tube # 1 CSF Mononuclear WBCs % 51.0 % CSF Polynuclear WBCs (%) 49.0 % CSF Chemistry Tube # 2 CSF Glucose 22 mg/dl (40-70) CSF Total Protein 67.6 mg/dl (15.0-45.0) Urine Color YELLOW Urine Appearance CLEAR (CLEAR) Urine pH 5.0 (4.5-7.5) Urine Specific Industry > 1.045 (1.000-1.030) Urine Protein NEG (NEG) Urine Glucose (UA) NEG (NEG) Urine Ketones NEG (NEG) Urine Occult Blood NEG (NEG) Urine Nitrite NEG (NEG) Urine Bilirubin NEG (NEG) Urine Urobilinogen NEG (NEG) Urine Leukocyte Esterase SMALL (NEG) Urine WBC (Auto) 10-30 /hpf (0-5) Urine RBC (Auto) 5-10 /hpf (0-4) Urine Hyaline Casts (Auto) 1-5 /lpf (0-5) Urine Epithelial Cells (Auto) >30 /lpf (0-5) Urine Bacteria (Auto) NEG (NEG) Test 05/21/17 05:54 05/21/17 06:14 05/21/17 08:14 05/21/17 08:25 Bedside Glucose 103 mg/dl (70-90) White Blood Count 9.70 K/uL (4.8-10.8) Red Blood Count 4.12 M/uL (4.2-5.4) Hemoglobin 10.9 g/dL (12.0-16.0) Hematocrit 33.7 % (37-47) Mean Corpuscular Volume 81.8 fL (80-100) Mean Corpuscular Hemoglobin 26.5 pg (25-34) Mean Corpuscular Hemoglobin Concent 32.3 g/dl (32-36) Platelet Count 192 K/uL (130-400) Mean Platelet Volume 9.2 fL (7.4-10.4) Neutrophils (%) (Auto) 80.4 % Lymphocytes (%) (Auto) 10.8 % Monocytes (%) (Auto) 7.3 % Eosinophils (%) (Auto) 1.0 % Basophils (%) (Auto) 0.2 % Neutrophils # (Auto) 7.79 K/uL (1.4-6.5) Lymphocytes # (Auto) 1.05 K/uL (1.2-3.4) Monocytes # (Auto) 0.71 K/uL (0.11-0.59) Eosinophils # (Auto) 0.10 K/uL (0-0.5) Basophils # (Auto) 0.02 K/uL (0-0.2) RDW Standard Deviation 45.1 fL (36.4-46.3) RDW Coefficient of Variation 15.0 % (11.5-14.5) Immature Granulocyte % (Auto) 0.3 % Immature Granulocyte # (Auto) 0.03 K/uL (0.00-0.02) Anion Gap 9.0 mmol/L (3-11) Est Creatinine Clear Calc Drug Dose 73.9 ml/min Estimated GFR () 88.4 Estimated GFR (Non- 76.3 BUN/Creatinine Ratio 16.5 (10-20) Calcium Level 8.1 mg/dl (8.5-10.1) Total Bilirubin 0.4 mg/dl (0.2-1) Aspartate Amino Transf (AST/SGOT) 14 U/L (15-37) Alanine Aminotransferase (ALT/SGPT) 19 U/L (12-78) Alkaline Phosphatase 54 U/L (45-117) Total Protein 6.0 gm/dl (6.4-8.2) Albumin 2.7 gm/dl (3.4-5.0) Globulin 3.3 gm/dl (2.5-4.0) Albumin/Globulin Ratio 0.8 (0.9-2) Hepatitis C Antibody Screen NEG (NEG) Test 05/21/17 08:26 Assessment and Plan 66 yo female with 5 day hx of worsening headaches and mental status change; DDX : meningitis vs. encephalitis vs. hypoglycemia (glucose of 42 on admission) Meningitis, likely viral, but Rx empirically Awaiting results for HSV PCR, enterovirus, and lyme dz workup to tailor Tx Awaiting csf culture, blood culture Started on ceftriaxone IV, day 1 Started on Vanc IV, day 1 Started on acyclovir IV day 1 Headache Pain rated 7-8 on admission Pain level 8-9 today Percocet 5/325 to be administered q4h prn DMT2 with hypoglycemia on admission Hold glimepiride, hold metformin Use insulin sliding scale while admitted. Coronary artery disease/HTN Continue erich-inhibitor, statin, and aspirin Urinary incontinence Continue oxybutynin Upper abdominal lymphadenopathy: Incidental finding on CT abdomen and pelvis : Mildly enlarged upper abdominal lymph nodes which are likely benign but a Follow-up CT of the abdomen in 6 months to ensure stability is recommended. Code status:Full code Dispo: Remains in telemetry VTE: Sub Q heparin Resident Physician Supervision Note: I was present with PGY1 Dr. Fara Jamison during the history and exam. I discussed the case with the resident and agree with the findings and plan as documented in the note. Any exceptions or clarifications are listed here: none. During bedside rounds pt c/o fevers, chills, and ongoing headache along w/ malaise. Has remote h/o fever blisters on lips. No recent travel or infectious exposures. febrile, Tc 38 other vitals stable gen - looks ill but nontoxic neck - no JVD mouth - no lesions; lips - no lesions heart - RRR, s1, s2 lungs - CTA b/l abd - soft, No HSM ext - no edema skin - no rash neuro - strength 5/5 x 4 exts CSF culture to date negative CSF cell counts with monocyte predominance A/P: 1. meningitis - likely aseptic/viral, but while awaiting CSF cx continue empiric rocephin/vanco. Doubt lyme's as IgM and IgG both neg but will send CSF for Lyme's. Send CSF for HSV PCR and add acyclovir. Check enterovirus from CSF. Supportive care; treat fever, h/a, etc. 2. hypoglycemia - resolved; holding oral agents. 3. FEN - cont IVF. Documented By: David Triplett MD Resident Tracking Resident Involvement: Resident Care Provided Care Provided: Adult Hospital Medicine
--- NOTE | 2017-05-21 08:28 | DIAGNOSTIC IMAGING REPORT ---
MRI OF THE BRAIN COMBO CLINICAL HISTORY: Headaches. COMPARISON STUDY: CT of the brain dated 05/20/2017. TECHNIQUE: MRI of the brain was performed utilizing various T1 and T2-weighted sequences in the axial, sagittal, and coronal planes. Contrast-enhanced sequences were acquired following the administration of 10 cc of Gadavist. The examination is performed using the multiple sclerosis protocol. The examination is degraded by motion artifact. FINDINGS: Brain parenchyma: There are numerous foci of T2 signal abnormality seen throughout the subcortical and periventricular white matter. There is no associated abnormal enhancement in the postcontrast sequences. There is no hemorrhage or mass effect. There is no restricted diffusion to suggest acute ischemia. No enhancing mass lesion is identified on the postcontrast images. Anderson-white matter differentiation is preserved. No extra-axial fluid collection is seen. The cerebellar tonsils are normal in configuration. Ventricles, sulci, and cisterns: Prominent secondary to involutional change. Pituitary and sella: Unremarkable. Intracranial vasculature: Normal flow voids are maintained at the skull base. Orbits: The bony orbits are grossly intact. Orbital contents are normal in appearance. Sinuses and mastoids: Clear. Calvarium: Unremarkable. Cervical cord: Partially visualized cervical spinal cord is normal in morphology and signal intensity. IMPRESSION: 1. No acute intracranial abnormality. 2. There are numerous foci of T2 signal abnormality seen throughout the subcortical and periventricular white matter. There is no associated abnormal enhancement on the postcontrast images. The appearance favors chronic microangiopathic disease. A demyelinating process would be impossible to exclude but is considered less likely. Clinical correlation will be essential. Electronically signed by: Dhaval Fountain M.D. 05/21/2017 8:27 AM Dictated Date/Time: 05/21/2017 8:22 AM
--- NOTE | 2017-05-21 08:29 | Pharmacy Progress Note ---
Pharmacy Abx Initial Consult Date of Service May 21, 2017. Pharmacy Dosing Scope Date of Consult: 05/21/17 Consultation requested by: Dr. Kang Pharmacy is consulted to initiate vancomycin IV dosing therapy, order appropriate labs and adjust drug dose/frequency. Subjective The patient is a 66 year old female admitted on May 21, 2017 at 00:05 with headache x 5 days. Objective Height (Feet): 5 Height (Inches): 1.00 Weight (Kilograms): 99.900 Vital Signs (Past 12Hrs) Vital Signs Past 12 Hours Date Time Temp Pulse Resp B/P (MAP) Pulse Ox O2 Delivery O2 Flow Rate FiO2 05/21/17 07:47 36.9 77 18 114/65 (81) 93 Room Air 05/21/17 04:06 Nasal Cannula 2.0 05/21/17 04:00 37.1 73 18 122/71 (88) 98 Nasal Cannula 2.0 05/21/17 00:50 37.0 77 22 132/79 97 Nasal Cannula 2.0 05/21/17 00:31 84/61 05/21/17 00:29 76 24 05/21/17 00:26 73 05/21/17 00:24 36.8 105/51 98 05/21/17 00:22 73 05/21/17 00:13 19 05/21/17 00:11 98 Nasal Cannula 2.0 05/21/17 00:07 85 Room Air 05/21/17 00:01 98/50 05/20/17 23:58 80 18 94 05/20/17 23:43 85 13 96 05/20/17 23:31 122/66 05/20/17 21:57 115/107 05/20/17 21:57 89 18 115/107 93 Room Air 05/20/17 21:43 97 21 05/20/17 21:28 86 20 89 05/20/17 21:13 83 27 96 05/20/17 20:58 86 34 90 05/20/17 20:43 86 32 05/20/17 20:28 87 37 88 Lab Results (24Hrs) Laboratory Tests (24 Hours) Test 05/20/17 15:52 05/20/17 16:52 05/21/17 06:14 Total Creatine Kinase 94 U/L (26-192) Lactic Acid Level 1.3 mmol/L (0.4-2.0) White Blood Count 9.70 K/uL (4.8-10.8) Red Blood Count 4.12 M/uL (4.2-5.4) L Hemoglobin 10.9 g/dL (12.0-16.0) L Hematocrit 33.7 % (37-47) L Mean Corpuscular Volume 81.8 fL (80-100) Mean Corpuscular Hemoglobin 26.5 pg (25-34) Mean Corpuscular Hemoglobin Concent 32.3 g/dl (32-36) Platelet Count 192 K/uL (130-400) Mean Platelet Volume 9.2 fL (7.4-10.4) Neutrophils (%) (Auto) 80.4 % Lymphocytes (%) (Auto) 10.8 % Monocytes (%) (Auto) 7.3 % Eosinophils (%) (Auto) 1.0 % Basophils (%) (Auto) 0.2 % Neutrophils # (Auto) 7.79 K/uL (1.4-6.5) H Lymphocytes # (Auto) 1.05 K/uL (1.2-3.4) L Monocytes # (Auto) 0.71 K/uL (0.11-0.59) H Eosinophils # (Auto) 0.10 K/uL (0-0.5) Basophils # (Auto) 0.02 K/uL (0-0.2) Micro Results Date/Time Source Procedure Growth Status 05/20/17 16:52 Blood Blood Culture Pending Received 05/20/17 15:52 Blood Blood Culture Pending Received 05/20/17 20:15 Cerebral Spinal Fluid Gram Stain - Final Resulted 05/20/17 20:15 Cerebral Spinal Fluid CSF Culture Pending Resulted 05/20/17 22:30 Urine , Clean Catch Urine Culture Pending Received Assessment & Plan Assessment 66 year old female admitted for bacterial vs viral meningitis, initiated on Rocephin + vancomycin Plan Vancomycin IV * Est PK parameters: Vd ~0.6 L/kg (for BMI > 40) , Vimal 0.058 hr-1, t1/2 11.9 hrs * Loading dose: 2600 mg (26 mg/kg) * Maintenance dose: 1000 mg IV (10 mg/kg) every 12 hours * Goal trough level for meningitis : 15 to 20 mcg/mL * Trough level ordered for 05/22/17 prior to the 4th overall dose - not quite at steady state but need to assess for accumulation * A less than traditional dose has been selected due to likelihood of drug accumulation in obese patient Rocephin not being dosed by pharmacy Pharmacy will continue to follow and will adjust dose/frequency as necessary. Thank you.
[2017-05-21] MEDS ORDERED: VANCOMYCIN INJ 1,000 MG in SODIUM CHLORIDE 0.9% 250ML 250 ML IV SCH (09:00)
[2017-05-21] MEDS: ACYCLOVIR SOD INJ 500 MG in DEXTROSE 5% 100ML 100 ML IV SCH ×2 (10:27→17:52)
[2017-05-21] MEDS: OXYCODONE/ACETAMINOPHEN 5-325 TAB PO PRN ×3 (10:28→20:08)
[2017-05-21 11:22] LABS: LYME DISEASE AB IGG NEG (NEG); LYME DISEASE AB IGM NEG (NEG)
[2017-05-21] MEDS: VANCOMYCIN INJ 1,000 MG in SODIUM CHLORIDE 0.9% 250ML 250 ML IV SCH (15:46)
[2017-05-22] VITALS (19 sets, daily range): BP systolic 98–176; BP diastolic 51–91; PULSE 69–109; TEMP 36.8–38.7; O2SAT 90–98; Ht 154.9 cm; Wt 99.9 kg
[2017-05-22] MEDS: ACYCLOVIR SOD INJ 500 MG in DEXTROSE 5% 100ML 100 ML IV SCH ×3 (00:36→17:56)
[2017-05-22] MEDS: VANCOMYCIN INJ 1,000 MG in SODIUM CHLORIDE 0.9% 250ML 250 ML IV SCH ×2 (02:12→15:47)
[2017-05-22] MEDS: OXYCODONE/ACETAMINOPHEN 5-325 TAB PO PRN ×2 (02:16→15:47)
[2017-05-22] MEDS: CEFTRIAXONE SOD INJ 2,000 MG in DEXTROSE 5% 50ML 50 ML IV SCH ×2 (04:24→15:47)
[2017-05-22] MEDS: ONDANSETRON INJ 2 MG/ML 2 ML VIAL IV PRN ×2 (04:24→11:53)
[2017-05-22] MEDS: KETOROLAC TROMETHAMINE 10 MG TAB PO PRN ×2 (04:25→08:15)
[2017-05-22] MEDS: HEPARIN SOD 5000 UNIT/0.5 ML CARP SQ SCH ×3 (06:01→20:54)
[2017-05-22 06:31] LABS: BASO % 0.2 %; BASO ABS # 0.02 K/uL (0-0.2); COMPLETE YES; EOS % 1.6 %; HEMATOCRIT 33.9 % (37-47); IG% 0.2 %; LYMPH % 8.3 %; LYMPH ABS # 0.86 K/uL (1.2-3.4); MEAN CELL VOLUME 81.7 fL (80-100); MEAN CORPUSCULAR HGB CONC 31.9 g/dl (32-36); MEAN PLATELET VOLUME 9.1 fL (7.4-10.4); MONO % 8.3 %; NEUT % 81.4 %; PLATELET COUNT 207 K/uL (130-400); RED BLOOD COUNT 4.15 M/uL (4.2-5.4); WHITE BLOOD COUNT 10.31 K/uL (4.8-10.8)
[2017-05-22 06:56] LABS: BUN/CREATININE RATIO 12.5 (10-20); CREATININE 0.88 mg/dl (0.60-1.20); POTASSIUM 3.6 mmol/L (3.5-5.1)
[2017-05-22 06:59] LABS: ALB/GLOB RATIO 0.8 (0.9-2)
[2017-05-22] MEDS: ATORVASTATIN 40 MG TAB PO SCH (08:15)
[2017-05-22] MEDS: ASPIRIN 81 MG ECTAB PO SCH (08:15)
[2017-05-22] MEDS: FERROUS SULFATE 325 MG TAB PO SCH (08:16)
[2017-05-22] MEDS: LISINOPRIL 20 MG TAB PO SCH (08:16)
[2017-05-22] MEDS: INSULIN ASPART 100 UNITS/ML 3 ML PEN SC SCH ×4 (08:16→20:55)
[2017-05-22] MEDS: MULTIVITAMIN TAB PO SCH (08:16)
[2017-05-22] MEDS: OXYBUTYNIN CHLORIDE 5 MG TABCR PO SCH (08:16)
[2017-05-22] MEDS: SODIUM CHLORIDE 0.9% 1000ML 1,000 ML IV SCH ×2 (08:17→20:54)
--- NOTE | 2017-05-22 09:58 | Clinical Documentation Query ---
CLINICAL DOCUMENTATION QUERY Dr. ELIZONDO, In your clinical opinion is this patient being managed for: ( ) Morbid obesity with BMI 41.6 ( ) Other explanation of clinical findings (Please Explain) ( ) Unable to determine (Please Define) ( ) Need to Discuss ( ) Not Agree BMI: A significantly high (>40) BMI will impact the severity of illness and risk of mortality of your patient. However, the physician must document a correlating diagnosis in the medical record Please clarify and document your clinical opinion in the progress notes and discharge summary. Terms such as "probable", "suspected", "likely", "questionable", "possible", or "still to be ruled out" are acceptable. IF IN AGREEMENT, YOU MUST DOCUMENT ABOVE DIAGNOSTIC STATEMENT IN DAILY PROGRESS NOTES AND DISCHARGE SUMMARY. This document is not part of the patient's record. Thank You, Maite Klein RN [phone]
--- NOTE | 2017-05-22 10:00 | Clinical Documentation Query ---
CLINICAL DOCUMENTATION QUERY Dr. CHAVIRA, In your clinical opinion is this patient being managed for: ( ) Morbid obesity with BMI 41.6 ( ) Other explanation of clinical findings (Please Explain) ( ) Unable to determine (Please Define) ( ) Need to Discuss ( ) Not Agree BMI: A significantly high (>40) BMI will impact the severity of illness and risk of mortality of your patient. However, the physician must document a correlating diagnosis in the medical record Please clarify and document your clinical opinion in the progress notes and discharge summary. Terms such as "probable", "suspected", "likely", "questionable", "possible", or "still to be ruled out" are acceptable. IF IN AGREEMENT, YOU MUST DOCUMENT ABOVE DIAGNOSTIC STATEMENT IN DAILY PROGRESS NOTES AND DISCHARGE SUMMARY. This document is not part of the patient's record. Thank You, Maite Klein RN [phone]
--- NOTE | 2017-05-22 13:05 | Medical Consult ---
Consultation Date of Consultation: May 22, 2017. Attending Physician: David Triplett MD History of Present Illness Patient was admitted on the with headache and fevers and chills. She did undergo a lumbar puncture in the emergency room. Results of this showed 73 white blood cells with 62 percent neutrophils 30 percent lymphocytes. Her glucose was low at 22 on her CSF protein was elevated at 67. The Gram stain is negative and cultures have been negative. Blood cultures were obtained as well and are negative. An HSV PCR is pending. A Lyme screen was negative. A CSF Lyme PCR is pending. She did undergo a CT scan of the brain as well as an MRI of the brain which worsened screen negative. She had a CT scan of the abdomen and pelvis which were negative as well. She did have a fever as high as 38.5 on admission to the hospital on the she was afebrile. Yesterday her T-max was 38.7. On my examination she is out of bed to chair and she states she is feeling significantly better. She states her headache, fevers, chills have resolved completely. She denies any visual complaints. She denies any nuchal rigidity. She denies any chest pain cough shortness of breath nausea vomiting or diarrhea. She does admit to poor p.o. intake. She has no urinary symptoms. She lives at home with her who was well. She denies any recent travel out of the area. They have no pets in the house. She has had no sick contacts. She denies any recent tick bites skin rashes or other insect bites. She is tolerating medications well. She was placed on vancomycin Rocephin and acyclovir. Infectious diseases was asked for additional coverage for potential Lyme disease. All remaining review of systems are reviewed and are unremarkable except for as noted. Past Medical/Surgical History Medical Problems: (1) Infected cyst of skin Status: Acute Family History Diabetes mellitus Social History Smoking Status: Never Smoker Marital Status: Occupation Status: employed Allergies Coded Allergies: Alendronate (Unverified Adverse Reaction, Intermediate, NAUSEA, 08/08/15) Ibandronic Acid (Unverified Adverse Reaction, Unknown, NAUSEA, 08/08/15) Current Inpatient Medications Current Inpatient Medications Medications (Trade) Dose Ordered Sig/Autumn Route Start Time Stop Time Status Last Admin Dose Admin Heparin Sodium (Porcine) (Heparin Sq 5000 Unit/0.5ml) 5,000 unit Q8 SQ 05/21/17 06:00 06/20/17 05:59 05/22/17 06:01 5,000 UNIT Sodium Chloride 1,000 ml @ 100 mls/hr Q10H IV 05/21/17 01:30 06/20/17 01:29 05/22/17 08:17 100 MLS/HR Acetaminophen (Tylenol Tab) 650 mg Q4H PRN PO 05/21/17 00:00 06/20/17 00:00 05/21/17 21:52 650 MG Ondansetron HCl (Zofran Inj) 4 mg Q6H PRN IV 05/21/17 00:00 06/20/17 00:00 05/22/17 11:53 4 MG Polyethylene (Miralax Powder Packet) 17 gm DAILY PRN PO 05/21/17 00:00 06/20/17 00:00 Aspirin (Ecotrin Tab) 81 mg DAILY PO 05/21/17 09:00 06/20/17 08:59 05/22/17 08:15 81 MG Atorvastatin Calcium (Lipitor Tab) 40 mg DAILY PO 05/21/17 09:00 06/20/17 08:59 05/22/17 08:15 40 MG Lisinopril (Zestril Tab) 20 mg QAM PO 05/21/17 09:00 06/20/17 08:59 05/22/17 08:16 20 MG Multivitamins (Multivitamin Tab) 1 tab DAILY PO 05/21/17 09:00 06/20/17 08:59 05/22/17 08:16 1 TAB Ferrous Sulfate (Feosol Tab) 325 mg DAILY PO 05/21/17 09:00 06/20/17 08:59 05/22/17 08:16 325 MG Oxybutynin Chloride (Ditropan-Xl Tab) 15 mg DAILY PO 05/21/17 09:00 06/20/17 08:59 05/22/17 08:16 15 MG Insulin Aspart (novoLOG ASPART) SLIDING SCALE G... ACHS SC 05/21/17 07:00 06/20/17 06:59 Ceftriaxone Sodium 2000 mg/ Dextrose 70 ml @ 100 mls/hr Q12H IV 05/21/17 04:00 05/31/17 03:59 05/22/17 04:24 100 MLS/HR Vancomycin HCl (Consult) 1 ea UD PRN N/A 05/21/17 02:45 06/20/17 02:44 Vancomycin HCl 1000 mg/Sodium Chloride 270 ml @ 125 mls/hr Q12@0200,1400 IV 05/21/17 14:00 05/31/17 13:59 05/22/17 02:12 125 MLS/HR Acyclovir Sodium 500 mg/Dextrose 110 ml @ 110 mls/hr Q8H IV 05/21/17 09:00 05/31/17 08:59 05/22/17 08:17 110 MLS/HR Oxycodone/ Acetaminophen (Percocet 5-325mg Tab) 1 tab Q4H PRN PO 05/21/17 09:30 06/04/17 09:29 05/22/17 02:16 1 TAB Ketorolac Tromethamine (Toradol Tab) 10 mg Q4H PRN PO 05/21/17 16:30 05/26/17 16:29 05/22/17 08:15 10 MG Physical Exam Date Time Temp Pulse Resp B/P (MAP) Pulse Ox O2 Delivery O2 Flow Rate FiO2 05/22/17 12:03 37.2 73 20 132/80 (97) 95 Room Air 05/22/17 12:00 Room Air 05/22/17 08:04 36.8 69 22 120/71 (87) 94 Room Air 05/22/17 08:00 Room Air 05/22/17 04:00 90 Room Air 05/22/17 03:58 38.3 107 19 115/64 (81) 90 Room Air 05/22/17 00:01 92 Room Air 05/22/17 00:00 38.7 90 19 105/51 (69) 92 Room Air 05/21/17 20:00 94 Room Air 05/21/17 19:25 36.6 84 18 142/76 (98) 94 Room Air 05/21/17 16:00 Room Air 05/21/17 15:34 37.2 95 20 149/81 (103) 92 Room Air General Appearance: WD/WN, no apparent distress Head: normocephalic, atraumatic, + pertinent finding (No nuchal rigidity) Eyes: normal inspection, EOMI Neck: supple Respiratory/Chest: lungs clear, normal breath sounds, no respiratory distress Cardiovascular: regular rate, rhythm, no edema, no murmur Abdomen/GI: non tender, soft Extremities/Musculoskelatal: no pedal edema Neurologic/Psych: alert, oriented x 3 Skin: normal color Laboratory Results Item Value Date Time Gram Stain - Final Complete 05/20/172014 Cerebral Spinal Fluid Blood Culture - Preliminary Resulted 05/20/17 1652 Blood NO GROWTH TO DATE. Blood Culture - Preliminary Resulted 05/20/17 1552 Blood NO GROWTH TO DATE. Last 24 Hours Test 05/21/17 16:22 05/21/17 21:02 05/22/17 06:02 05/22/17 06:41 Bedside Glucose 108 mg/dl 125 mg/dl 139 mg/dl White Blood Count 10.31 K/uL Red Blood Count 4.15 M/uL Hemoglobin 10.8 g/dL Hematocrit 33.9 % Mean Corpuscular Volume 81.7 fL Mean Corpuscular Hemoglobin 26.0 pg Mean Corpuscular Hemoglobin Concent 31.9 g/dl Platelet Count 207 K/uL Mean Platelet Volume 9.1 fL Neutrophils (%) (Auto) 81.4 % Lymphocytes (%) (Auto) 8.3 % Monocytes (%) (Auto) 8.3 % Eosinophils (%) (Auto) 1.6 % Basophils (%) (Auto) 0.2 % Neutrophils # (Auto) 8.38 K/uL Lymphocytes # (Auto) 0.86 K/uL Monocytes # (Auto) 0.86 K/uL Eosinophils # (Auto) 0.17 K/uL Basophils # (Auto) 0.02 K/uL RDW Standard Deviation 44.8 fL RDW Coefficient of Variation 15.0 % Immature Granulocyte % (Auto) 0.2 % Immature Granulocyte # (Auto) 0.02 K/uL Sodium Level 139 mmol/L Potassium Level 3.6 mmol/L Chloride Level 106 mmol/L Carbon Dioxide Level 23 mmol/L Anion Gap 10.0 mmol/L Blood Urea Nitrogen 11 mg/dl Creatinine 0.88 mg/dl Est Creatinine Clear Calc Drug Dose 67.2 ml/min Estimated GFR () 78.8 Estimated GFR (Non- 68.0 BUN/Creatinine Ratio 12.5 Random Glucose 133 mg/dl Calcium Level 8.0 mg/dl Total Bilirubin 0.4 mg/dl Aspartate Amino Transf (AST/SGOT) 13 U/L Alanine Aminotransferase (ALT/SGPT) 19 U/L Alkaline Phosphatase 54 U/L Total Protein 6.2 gm/dl Albumin 2.7 gm/dl Globulin 3.5 gm/dl Albumin/Globulin Ratio 0.8 Test 05/22/17 11:06 Bedside Glucose 154 mg/dl Assessment & Plan (1) Meningitis Assessment & Plan: Suspect viral in etiology however cultures are pending. If cultures remain negative antibiotics could be discontinued. The Rocephin that she is under also cover empirically for Lyme disease. Again I think this is less likely as she has had no recent exposure and a negative screen however Lyme PCR is pending and will wait for results. HSV PCR is pending as well. She remains on acyclovir. If this is negative for acyclovir can be discontinued. Thank you for this consultation.
[2017-05-22] MEDS ORDERED: VANCOMYCIN TROUGH ONE ×2 (13:30→23:30)
--- NOTE | 2017-05-22 18:56 | Family Medicine Progress Note ---
Progress Note Date of Service May 22, 2017. Subjective Pt evaluation today including: conversation w/ patient, physical exam, chart review, lab review, conversation w/ international travel consultant, review of inpatient medication list Pain: Headaches have diminished immensely overnight PO Intake: Increasing her PO intake Voiding: voiding difficulty Reports that her headaches are greatly improved and the pain is well controlled. She is eager to be transferred to a different room than the telemetry isolation room Appetite is improving but she does not like the in house food. Constitutional: + weakness Abdomen: + nausea All Other Systems: Reviewed and Negative Medications Current Inpatient Medications Medications (Trade) Dose Ordered Sig/Autumn Route Start Time Stop Time Status Last Admin Dose Admin Heparin Sodium (Porcine) (Heparin Sq 5000 Unit/0.5ml) 5,000 unit Q8 SQ 05/21/17 06:00 06/20/17 05:59 05/22/17 15:49 5,000 UNIT Sodium Chloride 1,000 ml @ 100 mls/hr Q10H IV 05/21/17 01:30 06/20/17 01:29 05/22/17 08:17 100 MLS/HR Acetaminophen (Tylenol Tab) 650 mg Q4H PRN PO 05/21/17 00:00 06/20/17 00:00 05/21/17 21:52 650 MG Ondansetron HCl (Zofran Inj) 4 mg Q6H PRN IV 05/21/17 00:00 06/20/17 00:00 05/22/17 11:53 4 MG Polyethylene (Miralax Powder Packet) 17 gm DAILY PRN PO 05/21/17 00:00 06/20/17 00:00 Aspirin (Ecotrin Tab) 81 mg DAILY PO 05/21/17 09:00 06/20/17 08:59 05/22/17 08:15 81 MG Atorvastatin Calcium (Lipitor Tab) 40 mg DAILY PO 05/21/17 09:00 06/20/17 08:59 05/22/17 08:15 40 MG Lisinopril (Zestril Tab) 20 mg QAM PO 05/21/17 09:00 06/20/17 08:59 05/22/17 08:16 20 MG Multivitamins (Multivitamin Tab) 1 tab DAILY PO 05/21/17 09:00 06/20/17 08:59 05/22/17 08:16 1 TAB Ferrous Sulfate (Feosol Tab) 325 mg DAILY PO 05/21/17 09:00 06/20/17 08:59 05/22/17 08:16 325 MG Oxybutynin Chloride (Ditropan-Xl Tab) 15 mg DAILY PO 05/21/17 09:00 06/20/17 08:59 05/22/17 08:16 15 MG Insulin Aspart (novoLOG ASPART) SLIDING SCALE G... ACHS SC 05/21/17 07:00 06/20/17 06:59 Ceftriaxone Sodium 2000 mg/ Dextrose 70 ml @ 100 mls/hr Q12H IV 05/21/17 04:00 05/31/17 03:59 05/22/17 15:47 100 MLS/HR Vancomycin HCl (Consult) 1 ea UD PRN N/A 05/21/17 02:45 06/20/17 02:44 Acyclovir Sodium 500 mg/Dextrose 110 ml @ 110 mls/hr Q8H IV 05/21/17 09:00 05/31/17 08:59 05/22/17 17:56 110 MLS/HR Oxycodone/ Acetaminophen (Percocet 5-325mg Tab) 1 tab Q4H PRN PO 05/21/17 09:30 06/04/17 09:29 05/22/17 15:47 1 TAB Ketorolac Tromethamine (Toradol Tab) 10 mg Q4H PRN PO 05/21/17 16:30 05/26/17 16:29 05/22/17 08:15 10 MG Vancomycin HCl 1200 mg/Sodium Chloride 274 ml @ 125 mls/hr Q12@0000,1200 IV 05/23/17 00:00 05/31/17 23:59 Objective Vital Signs Date Time Temp Pulse Resp B/P (MAP) Pulse Ox O2 Delivery O2 Flow Rate FiO2 05/22/17 16:00 Room Air 05/22/17 15:27 37.3 89 18 139/79 (99) 98 Room Air 05/22/17 12:03 37.2 73 20 132/80 (97) 95 Room Air 05/22/17 12:00 Room Air 05/22/17 08:04 36.8 69 22 120/71 (87) 94 Room Air 05/22/17 08:00 Room Air 05/22/17 04:00 90 Room Air 05/22/17 03:58 38.3 107 19 115/64 (81) 90 Room Air 05/22/17 00:01 92 Room Air 05/22/17 00:00 38.7 90 19 105/51 (69) 92 Room Air 05/21/17 20:00 94 Room Air 05/21/17 19:25 36.6 84 18 142/76 (98) 94 Room Air Physical Exam General Appearance: WD/WN, no apparent distress Eyes: normal inspection, PERRL, EOMI, sclerae normal ENT: hearing grossly normal Neck: supple Respiratory/Chest: lungs clear, normal breath sounds, no respiratory distress, no accessory muscle use Cardiovascular: regular rate, rhythm, no edema, no gallop, no JVD, no murmur Abdomen: normal bowel sounds, non tender, soft Extremities: non-tender, normal inspection, no pedal edema Neurologic/Psychiatric: normal mood/affect, oriented x 3 Skin: normal color, no rash Laboratory Results 05/22/17 06:02 Red Blood Count 4.15, Mean Corpuscular Volume 81.7, Mean Corpuscular Hemoglobin 26.0, Mean Corpuscular Hemoglobin Concent 31.9, Mean Platelet Volume 9.1, Neutrophils (%) (Auto) 81.4, Lymphocytes (%) (Auto) 8.3, Monocytes (%) (Auto) 8.3, Eosinophils (%) (Auto) 1.6, Basophils (%) (Auto) 0.2, Neutrophils # (Auto) 8.38, Lymphocytes # (Auto) 0.86, Monocytes # (Auto) 0.86, Eosinophils # (Auto) 0.17, Basophils # (Auto) 0.02 05/22/17 06:02 Test 05/22/17 06:02 05/22/17 14:06 05/22/17 16:22 White Blood Count 10.31 K/uL (4.8-10.8) Red Blood Count 4.15 M/uL (4.2-5.4) Hemoglobin 10.8 g/dL (12.0-16.0) Hematocrit 33.9 % (37-47) Mean Corpuscular Volume 81.7 fL (80-100) Mean Corpuscular Hemoglobin 26.0 pg (25-34) Mean Corpuscular Hemoglobin Concent 31.9 g/dl (32-36) Platelet Count 207 K/uL (130-400) Mean Platelet Volume 9.1 fL (7.4-10.4) Neutrophils (%) (Auto) 81.4 % Lymphocytes (%) (Auto) 8.3 % Monocytes (%) (Auto) 8.3 % Eosinophils (%) (Auto) 1.6 % Basophils (%) (Auto) 0.2 % Neutrophils # (Auto) 8.38 K/uL (1.4-6.5) Lymphocytes # (Auto) 0.86 K/uL (1.2-3.4) Monocytes # (Auto) 0.86 K/uL (0.11-0.59) Eosinophils # (Auto) 0.17 K/uL (0-0.5) Basophils # (Auto) 0.02 K/uL (0-0.2) RDW Standard Deviation 44.8 fL (36.4-46.3) RDW Coefficient of Variation 15.0 % (11.5-14.5) Immature Granulocyte % (Auto) 0.2 % Immature Granulocyte # (Auto) 0.02 K/uL (0.00-0.02) Anion Gap 10.0 mmol/L (3-11) Est Creatinine Clear Calc Drug Dose 67.2 ml/min Estimated GFR () 78.8 Estimated GFR (Non- 68.0 BUN/Creatinine Ratio 12.5 (10-20) Calcium Level 8.0 mg/dl (8.5-10.1) Total Bilirubin 0.4 mg/dl (0.2-1) Aspartate Amino Transf (AST/SGOT) 13 U/L (15-37) Alanine Aminotransferase (ALT/SGPT) 19 U/L (12-78) Alkaline Phosphatase 54 U/L (45-117) Total Protein 6.2 gm/dl (6.4-8.2) Albumin 2.7 gm/dl (3.4-5.0) Globulin 3.5 gm/dl (2.5-4.0) Albumin/Globulin Ratio 0.8 (0.9-2) Vancomycin Level Trough 13.7 mcg/ml (SEE COMMENT) Bedside Glucose 128 mg/dl (70-90) Assessment and Plan 66 yo female with suspected viral meningitis Meningitis, likely viral, but Rx empirically Awaiting results for HSV PCR, enterovirus, and lyme dz workup to tailor Tx Blood cultures have so far come back negative Awaiting CSF culture results Started on ceftriaxone IV, day 2 Started on Vanc IV, day 2 Started on acyclovir IV day 2 Will likely DC vancomycin and ceftriaxone tomorrow when cultures are confirmed negative Headache Pain rated 7-8 on admission Pain level 2-3 today Percocet 5/325 to be continued for now prn DMT2 with hypoglycemia on admission Hold glimepiride, hold metformin Use insulin sliding scale while admitted. Coronary artery disease/HTN Continue erich-inhibitor, statin, and aspirin Urinary incontinence Continue oxybutynin Upper abdominal lymphadenopathy: Incidental finding on CT abdomen and pelvis : Mildly enlarged upper abdominal lymph nodes which are likely benign but a Follow-up CT of the abdomen in 6 months to ensure stability is recommended. Code status:Full code Dispo: Transferred to Med/surg floor today VTE: Sub Q heparin Resident Physician Supervision Note: I was present with PGY1 Dr. Fara Jamison during the history and exam. I discussed the case with the resident and agree with the findings and plan as documented in the note. Any exceptions or clarifications are listed here: none. During bedside rounds today patient feeling much better. Headaches improved. Appetite somewhat better. Had fever last pm but none this am. No rigors/chills. Telemetry normal overnight as well. Tm 38.7; Tc - afebrile other vitals stable gen - sitting in chair eating lunch, looks better today neck - no JVD mouth - MMM heart - RRR, s1, s2 lungs - CTA b/l abd - soft, No HSM ext - no edema skin - no rash neuro - strength 5/5 x 4 exts; scant tremor noted of arms and also slight facial tremor - new? (patient reports she has this at home some times) CSF bacterial culture to date negative CBC nl BMP nl Lyme IgG negative A/P: 1. meningitis - likely aseptic/viral but continue empiric rocephin/vanco until CSF culture is negative. Doubt lyme's as serum IgM and IgG both neg but CSF lyme's sent as precautionary measure. CSF for HSV PCR pending; continue acyclovir. Check enterovirus from CSF. Supportive care; treat fever, h/a, etc. ID consult obtained and their recommendations are appreciated. Overall looks better today clinically. 2. hypoglycemia - resolved; holding oral diabetic agents. Continue novolog for meal-time coverage, if necessary. 3. HTN - controlled with home medications. 4. slight tremor - orofacial/arms - one of her parents had tremor - familial tremor? follow for now. PT, OT consults for fatigue/deconditioning related to illness. Overall progressing nicely. Hopefully can d/c rocephin/vanco in AM if CSF cx is negative. Documented By: David Triplett MD Resident Tracking Resident Involvement: Resident Care Provided Care Provided: Adult Hospital Medicine
--- NOTE | 2017-05-22 20:20 | DIAGNOSTIC IMAGING REPORT ---
CT OF THE HEAD WITHOUT CONTRAST CLINICAL HISTORY: Left-sided neglect. Weakness. Meningitis. COMPARISON STUDY: Head CT and MRI the brain May 20, 2017. CT DOSE: 1708.23 mGy.cm TECHNIQUE: Helical axial images of the head were obtained without IV contrast. Automated exposure control was utilized for the study. FINDINGS: This exam is mildly compromised by motion artifact. There is been interval development of a 3.1 x 2.4 cm parenchymal hematoma within the right frontotemporal region since head CT and MRI of May 20, 2017. Ventricular system is stable. Basilar cisterns are patent. White matter hypodensities are again noted. These are suboptimally assessed by CT. There are no significant calvarial abnormalities. IMPRESSION: 1. Interval development of a 3.1 x 2.4 cm acute parenchymal hematoma within the right frontotemporal region since head CT and MRI of May 20, 2017. Mild associated vasogenic edema with mild mass effect. A short-term follow-up head CT in 12 hours is recommended. 2. Redemonstration of white matter hypodensities which remain nonspecific. Electronically signed by: Yazan Hoffman M.D. 05/22/2017 8:19 PM Dictated Date/Time: 05/22/2017 8:10 PM
[2017-05-22 20:21] LABS: BASO % 0.1 %; BASO ABS # 0.01 K/uL (0-0.2); EOS % 1.4 %; HEMATOCRIT 35.6 % (37-47); IG% 0.1 %; LYMPH ABS # 1.18 K/uL (1.2-3.4); MEAN CELL VOLUME 81.1 fL (80-100); MEAN CORPUSCULAR HEMOGLOBIN 26.4 pg (25-34); MONO % 7.4 %; PLATELET COUNT 200 K/uL (130-400); RED BLOOD COUNT 4.39 M/uL (4.2-5.4); WHITE BLOOD COUNT 9.87 K/uL (4.8-10.8)
[2017-05-22 20:25] LABS: COMPLETE YES; MEAN CORPUSCULAR HGB CONC 32.6 g/dl (32-36)
[2017-05-22 20:31] LABS: INR 1.1 (0.9-1.1); PARTIAL THROMBOPLASTIN RATIO 1.1; PROTHROMBIN TIME (PATIENT) 11.4 SECONDS (9.0-12.0)
[2017-05-22] MEDS ORDERED: NiCARDipine IV 25 MG in SODIUM CHLORIDE 0.9% 250ML 240 ML IV PRN (20:32)
[2017-05-22 20:57] LABS: ALB/GLOB RATIO 0.8 (0.9-2); BUN/CREATININE RATIO 11.4 (10-20); CALCIUM 8.5 mg/dl (8.5-10.1); CREATININE 0.9 mg/dl (0.60-1.20); POTASSIUM 3.6 mmol/L (3.5-5.1)
[2017-05-22] MEDS ORDERED: LEVETIRACETAM IV 1,000 MG in DEXTROSE 5% 100ML 100 ML IV SCH (21:00)
[2017-05-22] MEDS ORDERED: NURSING VERBAL MED ORDER ONE (21:00)
--- NOTE | 2017-05-22 21:11 | Discharge Summary ---
Discharge Summary Date of Service May 22, 2017. Discharge Summary Admission Date: May 21, 2017 at 00:05 Discharge Date: May 22, 2017 Discharge Disposition: Acute care facility Principal Diagnosis: hemorrhagic stroke Problems/Secondary Diagnoses: viral meningitis Consultations: infectious disease Medication Reconciliation Continued Medications: Atorvastatin (Lipitor) 40 Mg Tab 40 MG PO DAILY, TAB Discontinued Medications: Aspirin (Aspirin Ec) 81 Mg Tab 81 MG PO DAILY Exenatide (Bydureon) 2 Mg Inj 2 MG SQ WK EVERY SATURDAY Ferrous Sulfate (Kp Ferrous Sulfate) 325 Mg Tab 325 MG PO DAILY, TAB Glimepiride (Glimepiride) 4 Mg Tab 2 MG PO DAILY, TAB 1/2 TABLET DOSE Lisinopril (Prinivil) 20 Mg Tab 20 MG PO QAM, 0 Refills Metformin Hcl (Glucophage) 1,000 Mg Tab 1000 MG PO AMPM, TAB Metformin Hcl (Glucophage) 500 Mg Tab 500 MG PO DAILY @ NOON, TAB Multivitamin (Multivitamin) Tab 1 TAB PO DAILY, 0 Refills Oxybutynin Chloride (Oxybutynin Chloride Er) 15 Mg Tab 15 MG PO DAILY, TAB Discharge Exam Review of Systems: Constitutional: No fever, No chills ENT: No hearing loss Respiratory: No cough Abdomen: No pain Musculoskeletal: No joint pain Genitourinary - Male: No hematuria, No dysuria Physical Exam: Eyes: normal inspection ENT: hearing grossly normal Neck: supple Respiratory/Chest: chest non-tender, lungs clear, normal breath sounds Cardiovascular: regular rate, rhythm, no edema Abdomen / GI: normal bowel sounds, non tender, soft Neurologic/Psychiatric: alert, + facial droop, + motor weakness (left sided weakness), + pertinent finding (responds to commands but has left sided weakness ) Skin: normal color Hospital Course 66-year-old female with a past medical history of diabetes, hypertension, coronary artery disease presented to the ER with complaints of headache that started 5 days prior to arrival. She had developed fever with chills 1 day prior to arrival associated with photophobia and phonophobia but no neck stiffness. In the ER, she underwent a head CT which revealed no acute intracranial hemorrhage or mass effect but had extensive white matter hypodensities which could reflect small vessel disease. MRI was subsequently ordered which revealed no acute intracranial abnormality and she had numerous foci of T2 signal abnormality throughout the subcortical and periventricular white matter which favored chronic microangiopathic disease. She also underwent an LP in the ER which revealed elevated CSF WBCs at 73, elevated total protein at 67, low CSF glucose at 22( though her blood sugar was also low at 43) She was being treated for meningitis with vancomycin, Rocephin, acyclovir. CSF cultures, blood cultures are currently pending. CSF Gram stain showed no organisms. Lyme serology was also negative On 05/22/2017, about 6 PM she developed left-sided weakness and neglect, Head CT was ordered which revealed Interval development of a 3.1 x 2.4 cm acute parenchymal hematoma within the right frontotemporal region since head CT and MRI of May 20, 2017. Mild associated vasogenic edema with mild mass effect. A short-term follow-up head CT in 12 hours is recommended. 2. Redemonstration of white matter hypodensities which remain nonspecific. After consult neurosurgery at [facility], she is being transferred for further evaluation and treatment. Aspirin and heparin have been held Hypoglycemia: On arrival blood sugar was 43, h/o DM uses metformin and exenatide ,glimepiride- held - Initial BSG 43-->61 - hypoglycemia protocol - ISS for managing hyperglycemia Right renal calculus: Stable Abdominal/pelvis CT : 0.4 cm right renal calculus. Possible 4 mm bladder calculus. No ureteral calculi or hydronephrosis. Upper abdominal lymphadenopathy: Incidental finding on CT abdomen and pelvis : Mildly enlarged upper abdominal lymph nodes which are likely benign but a follow-up CT of the abdomen in 6 months to ensure stability is recommended. HTN: - continue lisinopril Coronary artery disease: - Continue aspirin, Lipitor Full code dispo: admitted to tele Total Time Spent: Greater than 30 minutes This includes examination of the patient, discharge planning, medication reconciliation, and communication with other providers. Discharge Instructions Please refer to the electronic Patient Visit Report (Discharge Instructions) for additional information.
[2017-05-23] MEDS ORDERED: VANCOMYCIN INJ 1,200 MG in SODIUM CHLORIDE 0.9% 250ML 250 ML IV SCH ×2
[2017-05-24] MEDS ORDERED: VANCOMYCIN TROUGH ONE (11:30)
[2017-05-24 19:27] LABS: LYME DNA PCR CSF OR SYNOVIAL Not detected (Not Detected); LYME DNA SOURCE CSF
[2017-06-21 14:49] LABS: HSV TYPE 1 DNA Not Detected (Not Detected); HSV TYPE 1&2 DNA SOURCE CSF; HSV TYPE 2 DNA Not Detected (Not Detected)
== END 2017-05-22 21:20 | disposition short-term general hospital (02) | DRG 75 ==
LOC: C.EDB 14:54 → C.2T 05-21 00:05 → ENRESERV 05-21 00:16 → CANRESERV 05-22 19:13 → EDBEDREQSVC 05-22 20:28 → ENRESERV 05-22 20:29 → C.MSICU 05-22 20:49
PROVIDERS: ADMIT Family Medicine; ATTEND Internal Medicine
DX: A87.9 Viral meningitis, unspecified (principal); I62.9 Nontraumatic intracranial hemorrhage, unspecified; G81.94 Hemiplegia, unspecified affecting left nondominant side; R41.4 Neurologic neglect syndrome; R59.0 Localized enlarged lymph nodes; I10 Essential (primary) hypertension; I25.10 Atherosclerotic heart disease of native coronary artery without angina pectoris; E11.649 Type 2 diabetes mellitus with hypoglycemia without coma; R32 Unspecified urinary incontinence; N20.0 Calculus of kidney; N21.0 Calculus in bladder; Z79.82 Long term (current) use of aspirin; Z79.84 Long term (current) use of oral hypoglycemic drugs; Z79.899 Other long term (current) drug therapy